=== PATIENT | male | born 1950 | race Caucasian/White ===

== ENCOUNTER 2017-10-31 07:56 | Outpatient (CLI) | payer MEDICARE ==
[2017-10-31 08:37] LABS: BASOPHILS # (AUTO) 0.1 10^3/uL (0.0-0.1); EOSINOPHILS # (AUTO) 0.1 10^3/uL (0.0-0.7); EOSINOPHILS % (AUTO) 2.2 %; HCT - HEMATOCRIT 43.7 % (42.0-52.0); HGB - HEMOGLOBIN 14.8 g/dL (14.0-18.0); LYMPHOCYTES # (AUTO) 1.3 10^3/uL (1.5-3.5); LYMPHOCYTES % (AUTO) 23.4 %; MEAN CORPUSCULAR HEMOGLOBIN 30.7 pg (27.0-31.0); MEAN CORPUSCULAR HGB CONC 33.8 g/dL (32.0-36.0); MEAN CORPUSCULAR VOLUME 90.7 fL (80.0-94.0); MONOCYTES # (AUTO) 0.5 10^3/uL (0.0-1.0); MONOCYTES % (AUTO) 9.6 %; NEUTROPHILS # (AUTO) 3.5 10^3/uL (1.5-6.6); NEUTROPHILS % (AUTO) 63.8 %; RED BLOOD COUNT 4.81 10^6/uL (4.70-6.10); RED CELL DISTRIBUTION WIDTH 13.7 % (12.0-15.0); UNCORRECTED WHITE BLOOD COUNT 5.4 x10^3/uL; WHITE BLOOD COUNT 5.4 x10^3/uL (4.8-10.8)
[2017-10-31 09:08] LABS: ALBUMIN/GLOBULIN RATIO 1.2 (1.0-2.2); BILIRUBIN,TOTAL 0.7 mg/dL (0.2-1.0); BUN - BLOOD UREA NITROGEN 11 mg/dL (6-20); CALCIUM 9.3 mg/dL (8.5-10.3); CARBON DIOXIDE - CO2 26 mmol/L (21-32); CHLORIDE 99 mmol/L (101-111); CHOL/HDL RATIO 4.6 (<5.0); CHOLESTEROL 255 mg/dL; CREATININE 0.9 mg/dL (0.6-1.2); GFR - MDRD 84 (>89); GLUCOSE 114 mg/dL (70-100); HDL CHOLESTEROL 55 mg/dL; POTASSIUM 4.6 mmol/L (3.5-5.0); SODIUM 135 mmol/L (135-145); TOTAL PROTEIN 7.8 g/dL (6.7-8.2); TRIGLYCERIDES 171 mg/dL; VLDL CHOLESTEROL 34 mg/dL
== END 2017-10-31 07:57 | disposition home or self-care (01) ==
LOC: LAB 07:56
PROVIDERS: ATTEND Internal Medicine
DX: Z12.5 Encounter for screening for malignant neoplasm of prostate (principal); R11.0 Nausea; R51 Headache; K90.0 Celiac disease; E03.9 Hypothyroidism, unspecified
CPT/HCPCS: 36415; 80053; 80061; 84443; 85025; 86803; G0103; 84153

== ENCOUNTER 2018-07-05 18:19 | Outpatient (CLI) | payer MEDICARE | END 2018-07-05 18:20 | disposition critical access hospital (66) | LOC: EMS 18:19 | PROVIDERS: ATTEND Surgery | DX: R55 Syncope and collapse (principal) | CPT/HCPCS: A0425; A0427 ==

== ENCOUNTER 2018-07-05 18:36 | Emergency (ER) | payer MEDICARE ==
[2018-07-05 19:05] LABS: BASOPHILS % (AUTO) 0.5 %; EOSINOPHILS % (AUTO) 3.1 %; LYMPHOCYTES # (AUTO) 1.3 10^3/uL (1.5-3.5); LYMPHOCYTES % (AUTO) 26.4 %; MEAN CORPUSCULAR HEMOGLOBIN 31.3 pg (27.0-31.0); MEAN CORPUSCULAR HGB CONC 34.5 g/dL (32.0-36.0); MEAN CORPUSCULAR VOLUME 90.6 fL (80.0-94.0); MEAN PLATELET VOLUME 6.4 fL (7.4-11.4); PLT - PLATELET COUNT 266 10^3/uL (130-450); RED BLOOD COUNT 4.16 10^6/uL (4.70-6.10); RED CELL DISTRIBUTION WIDTH 13.7 % (12.0-15.0); WHITE BLOOD COUNT 4.9 x10^3/uL (4.8-10.8)
[2018-07-05 19:06] LABS: EOSINOPHILS # (AUTO) 0.2 10^3/uL (0.0-0.7); MONOCYTES # (AUTO) 0.4 10^3/uL (0.0-1.0)
[2018-07-05 19:11] LABS: PT - PROTHROMBIN TIME 11.4 secs (9.9-12.6)
[2018-07-05 19:17] LABS: ALBUMIN 3.5 g/dL (3.2-5.5); ALBUMIN/GLOBULIN RATIO 1.1 (1.0-2.2); BILIRUBIN,TOTAL 0.7 mg/dL (0.2-1.0); CALCIUM 8.8 mg/dL (8.5-10.3); CREATININE 0.8 mg/dL (0.6-1.2); TOTAL PROTEIN 6.7 g/dL (6.7-8.2)
--- NOTE | 2018-07-05 20:09 | ED Physician Documentation ---
PD HPI SYNCOPE - Stated complaint Stated Complaint: SYNCOPE - Chief complaint Chief Complaint: Neuro - History obtained from History obtained from: Patient, Family - History of Present Illness Witnessed: Witnessed (He been feeling a little poorly all day, nauseous and dizzy. He was taking his blood pressure several times and noting some high readings but they got better after relaxing. He got up to get a glass of water and had a syncopal episode. He was dizzy before that but there was no chest pain or trouble breathing. He was unconscious for a short period of time and then quickly recovered. There was no injury. He feels better now but was noted to be orthostatic for EMS.) Review of Systems Constitutional: denies: Fever, Chills Cardiac: denies: Chest pain / pressure, Palpitations Respiratory: denies: Dyspnea, Cough GI: reports: Nausea, Constipation. denies: Abdominal Pain, Vomiting, Diarrhea PD PAST MEDICAL HISTORY - Past Medical History Past Medical History: Yes Cardiovascular: None Respiratory: None Neuro: None Endocrine/Autoimmune: HyPOthyroidism GI: Other : None HEENT: None Musculoskeletal: None Other Past Medical History: Celiac disease. - Past Surgical History Past Surgical History: No - Present Medications Home Medications: Ambulatory Orders Medication Instructions Recorded Confirmed Levothyroxine Sodium [Synthroid] 07/05/18 - Allergies Allergies/Adverse Reactions: Allergies Allergy/AdvReac Type Severity Reaction Status Date / Time Penicillins Allergy Hives Verified 07/05/18 18:47 tetanus and diphtheria Allergy Hives Verified 07/05/18 18:47 toxoids - Social History Does the pt smoke?: No Smoking Status: Never smoker Does the pt drink ETOH?: Yes Does the pt have substance abuse?: No Substance Use and Type: Marijuana - Immunizations Immunizations are current?: Yes PD ED PE NORMAL - Vitals Vital signs reviewed: Yes - General General: Alert and oriented X 3, No acute distress - HEENT HEENT: PERRL, EOMI - Neck Neck: Supple, no meningeal sign, No bony TTP - Cardiac Cardiac: RRR, No murmur - Respiratory Respiratory: No respiratory distress, Clear bilaterally - Abdomen Abdomen: Normal bowel sounds, Soft, Non tender - Back Back: No CVA TTP, No spinal TTP - Derm Derm: Normal color, Warm and dry - Extremities Extremities: No edema, No calf tenderness / cord - Neuro Neuro: Alert and oriented X 3, Normal speech Results - Vitals Vitals: Vital Signs - 24 hr 07/05/18 07/05/18 18:39 20:52 Temperature 36.0 C L Heart Rate 63 Heart Rate [ 64 Sitting] Heart Rate [ 69 Standing] Heart Rate [ 58 L Supine] Respiratory 16 Rate Blood Pressure 123/82 H Blood Pressure 142/78 H [Sitting] Blood Pressure 138/88 H [Standing] Blood Pressure 123/81 H [Supine] O2 Saturation 97 Oxygen O2 Source Room air - EKG (time done) 1921 Rate: Rate (enter#) (55) Rhythm: NSR [place]: Normal Intervals: Normal SD QRS: Normal Ischemia: Normal ST segments Computer interpretation: Agree with computer - Labs Labs: Laboratory Tests 07/05/18 07/05/18 07/05/18 19:00 19:00 19:00 WBC 4.9 RBC 4.16 L Hgb 13.0 L Hct 37.7 L MCV 90.6 MCH 31.3 H MCHC 34.5 RDW 13.7 Plt Count 266 MPV 6.4 L Neut # (Auto) 3.0 Lymph # (Auto) 1.3 L Wharton # (Auto) 0.4 Eos # (Auto) 0.2 Baso # (Auto) 0.0 Absolute Nucleated RBC 0.00 Nucleated RBC % 0.0 PT 11.4 INR 1.0 Sodium 135 Potassium 3.4 L Chloride 105 Carbon Dioxide 22 Anion Gap 8.0 BUN 11 Creatinine 0.8 Estimated GFR (MDRD) 96 Glucose 106 H Calcium 8.8 Total Bilirubin 0.7 AST 29 ALT 21 Alkaline Phosphatase 37 L Troponin I Total Protein 6.7 Albumin 3.5 Globulin 3.2 Albumin/Globulin Ratio 1.1 Lipase 41 07/05/18 19:00 WBC RBC Hgb Hct MCV MCH MCHC RDW Plt Count MPV Neut # (Auto) Lymph # (Auto) Wharton # (Auto) Eos # (Auto) Baso # (Auto) Absolute Nucleated RBC Nucleated RBC % PT INR Sodium Potassium Chloride Carbon Dioxide Anion Gap BUN Creatinine Estimated GFR (MDRD) Glucose Calcium Total Bilirubin AST ALT Alkaline Phosphatase Troponin I < 0.04 Total Protein Albumin Globulin Albumin/Globulin Ratio Lipase PD MEDICAL DECISION MAKING - ED course ED course: He was feeling off all day and was not drinking water. Then got dizzy and syncopized. It was positional, and the orthostatics prehospital suggest it was probably a volume issue. After the administration of 1 L normal saline here he was feeling much better and the orthostatics were repeated and normal. - Sepsis Event Vital Signs: Vital Signs - 24 hr 07/05/18 07/05/18 18:39 20:52 Temperature 36.0 C L Heart Rate 63 Heart Rate [ 64 Sitting] Heart Rate [ 69 Standing] Heart Rate [ 58 L Supine] Respiratory 16 Rate Blood Pressure 123/82 H Blood Pressure 142/78 H [Sitting] Blood Pressure 138/88 H [Standing] Blood Pressure 123/81 H [Supine] O2 Saturation 97 Oxygen O2 Source Room air Departure - Departure Disposition: Home, Self Care Clinical Impression: Dehydration Syncope Qualifiers: Syncope type: unspecified Qualified Code(s): R55 - Syncope and collapse Condition: Good Record reviewed to determine appropriate education?: Yes Instructions: ED Dehydration, ED Dizziness Syncope Fainting W Pre Comments: Call your doctor to arrange a follow-up appointment, make the next available appointment. In the interim, return anytime if worse or if new symptoms develop.
[2018-07-05 20:54] VITALS: BP 142/78
[2018-07-05] MEDS ORDERED: SODIUM CHLORIDE 0.9% 1,000 ML IV ONE (22:01)
== END 2018-07-05 21:05 | disposition home or self-care (01) ==
LOC: EDUNIT# → ED 18:36 → SUPCPDRO 18:36 → ED 21:05
DX: E86.0 Dehydration (principal); R55 Syncope and collapse; E03.9 Hypothyroidism, unspecified
CPT/HCPCS: 36415; 80053; 83690; 84484; 85025; 85610; 93005; 96360; 99283; 99284

== ENCOUNTER 2022-02-19 13:40 | Outpatient (CLI) | payer MEDICARE | END 2022-02-19 13:41 | disposition EMS.NT | LOC: EMS 13:40 | DX: H53.8 Other visual disturbances (principal) ==

== ENCOUNTER 2023-09-24 09:41 | Outpatient (CLI) | payer MEDICARE ==
[2023-09-24 09:58] LABS: BASOPHILS % (AUTO) 0.3 %; HCT - HEMATOCRIT 20.9 % (42.0-52.0); HGB - HEMOGLOBIN 7.1 g/dL (14.0-18.0); LYMPHOCYTES # (AUTO) 0.9 10^3/uL (1.5-3.5); LYMPHOCYTES % (AUTO) 9.9 %; MEAN CORPUSCULAR VOLUME 85.3 fL (80.0-94.0); MEAN PLATELET VOLUME 8.5 fL (7.4-11.4); MONOCYTES # (AUTO) 0.6 10^3/uL (0.0-1.0); MONOCYTES % (AUTO) 7.1 %; NEUTROPHILS # (AUTO) 7.4 10^3/uL (1.5-6.6); NEUTROPHILS % (AUTO) 82.3 %; PLT - PLATELET COUNT 380 10^3/uL (130-450); RED BLOOD COUNT 2.45 10^6/uL (4.70-6.10); RED CELL DISTRIBUTION WIDTH 15.1 % (12.0-15.0)
[2023-09-24 10:30] LABS: ALBUMIN 4.1 g/dL (3.2-5.5); ALBUMIN/GLOBULIN RATIO 1.7 (1.0-2.2); BILIRUBIN,TOTAL 0.6 mg/dL (0.2-1.0); CALCIUM 8.9 mg/dL (8.5-10.3); CREATININE 0.9 mg/dL (0.6-1.3); POTASSIUM 3.4 mmol/L (3.5-4.5); TOTAL PROTEIN 6.5 g/dL (6.4-8.9)
== END 2023-09-24 09:42 | disposition home or self-care (01) ==
LOC: LAB 09:41
PROVIDERS: ATTEND Registered Nurse
DX: R19.7 Diarrhea, unspecified (principal); I95.1 Orthostatic hypotension; E86.0 Dehydration; R11.2 Nausea with vomiting, unspecified
CPT/HCPCS: 36415; 80053; 85025; 87045; 87046; 87427; 87493

== ENCOUNTER 2023-09-25 04:43 | Inpatient (IN) | payer MEDICARE ==
[2023-09-25] MEDS ORDERED: PANTOPRAZOLE 40 MG VIAL IVP STA (05:16)
--- NOTE | 2023-09-25 05:27 | ED Physician Documentation ---
History of Present Illness - Stated complaint Stated Complaint: ALOC, BLOOD IN STOOL - Chief complaint Chief Complaint: General - History obtained from History obtained from: Patient, Family, EMS - Additonal information Additional information: HPI is from EMS, patient, as well as patient's spouse. Patient's spouse is in the ED in an adjacent bed, as she is also presenting for unrelated symptoms as an ED patient. Patient's says that at approximately 4 AM this morning she noticed the patient was not in bed, which is highly unusual for him at this hour. She eventually found him outside on the porch. She says that he seemed disoriented when she found him. The patient tells me that he was feeling "claustrophobic" at approximately 3 AM and thus went outside to sit on the porch "to get some fresh air" (per patient). He says he felt better sitting outside, but, upon standing up out of the lawn chair on the porch, he had lightheadedness and generalized weakness and thus went to ground (denies falling, denies any injury; he describes slowly helping himself to the floor). Patient says he recalls entire event. He is oriented x3 on my HPI, but has difficulty with some answers to my questions and, per patient, he says he is feeling somewhat confused. Patient also complains of 3 days of dark, tarry stool. For this, he was seen in an outpatient clinic yesterday. He says that a test was done and stool that confirmed presence of blood in the stool. He had blood tests performed yesterday in the outpatient setting, does have not know results yet. Patient also says that when he was in the clinic, his systolic blood pressure was 120, but that it dropped "about 40 points" (per patient) when they checked his blood pressure when he stood up. The patient and patient's note that he took a dose of ibuprofen several days ago, then took Motrin (not realizing this is the same medication). Patient cannot recall details of previous GI bleed, but says that he has had gastrointestinal bleeding the past, possibly due to PUD. Patient does not take any blood thinning medications. Review of Systems Constitutional: reports: Fatigue. denies: Fever Eyes: denies: Loss of vision, Decreased vision Cardiac: reports: Reviewed and negative Respiratory: reports: Reviewed and negative GI: reports: Nausea, Vomiting, Bloody / black stool. denies: Abdominal Pain, Constipation, Diarrhea, Hematemesis : reports: Hematuria. denies: Dysuria, Frequency Skin: reports: Reviewed and negative Musculoskeletal: reports: Reviewed and negative Neurologic: reports: Generalized weakness, Near syncope, Confused (per patient although AAOx3 on my HPI/PE). denies: Focal weakness, Numbness, Unresponsive, Headache, Head injury, LOC PD PAST MEDICAL HISTORY - Past Medical History Cardiovascular: None Respiratory: None Neuro: None Endocrine/Autoimmune: HyPOthyroidism GI: Other : None HEENT: None Musculoskeletal: None - Past Surgical History Past Surgical History: No - Present Medications Home Medications: Ambulatory Orders Medication Instructions Recorded Confirmed Atorvastatin [Lipitor] 20 mg PO QPM 09/25/23 Levothyroxine [Synthroid] 88 mcg PO QDAC 09/25/23 Losartan Potassium 25 mg PO DAILY 09/25/23 Ondansetron HCl 4 mg PO BID PRN 09/25/23 - Allergies Allergies/Adverse Reactions: Allergies Allergy/AdvReac Type Severity Reaction Status Date / Time Penicillins Allergy Hives Verified 07/05/18 18:47 tetanus and diphtheria Allergy Hives Verified 07/05/18 18:47 toxoids - Social History Does the pt smoke?: No Smoking Status: Never smoker Does the pt drink ETOH?: Yes Does the pt have substance abuse?: No - Immunizations Immunizations are current?: Yes PD ED PE NORMAL - Vitals Vital signs reviewed: Yes - General General: Alert and oriented X 3, No acute distress, Other (pale, thin male in NAD) - HEENT HEENT: Atraumatic, Moist mucous membranes - Cardiac Cardiac: RRR, No murmur, No gallop, No rub - Respiratory Respiratory: No respiratory distress, Clear bilaterally - Abdomen Abdomen: Soft, Non tender, Non distended - Extremities Extremities: No edema - Neuro Neuro: Alert and oriented X 3, computer application developer 2-12 intact, No motor deficit, No sensory deficit, Normal speech Eye Opening: Spontaneous Motor: Obeys Commands Verbal: Oriented GCS Score: 15 PD ED PE EXPANDED - Rectal Rectal: Other (dark black stool ). No: Hemorrhoid - Derm Derm: Pale Results - Vitals Vitals: Vital Signs - 24 hr 09/25/23 09/25/23 09/25/23 04:53 06:42 08:01 Temperature 37 C 36.7 C Heart Rate 72 100 58 L Respiratory 20 20 16 Rate Blood Pressure 134/64 H 134/82 H 120/57 L O2 Saturation 100 100 100 If not protocol 2 2 : Oxygen Flow, liters/minute Oxygen O2 Source Nasal cannula - Labs Labs: Laboratory Tests 09/25/23 09/25/23 09/25/23 04:50 04:50 04:53 WBC 6.6 RBC 2.09 L Hgb 6.0 L* Hct 18.5 L* MCV 88.5 MCH 28.7 MCHC 32.4 RDW 15.3 H Plt Count 373 MPV 8.8 Neut # (Auto) 5.2 Lymph # (Auto) 0.8 L Lipscomb # (Auto) 0.6 Eos # (Auto) 0.0 Baso # (Auto) 0.0 Absolute Nucleated RBC 0.00 Nucleated RBC % 0.0 PT INR Sodium Potassium Chloride Carbon Dioxide Anion Gap BUN Creatinine Estimated GFR (MDRD) Glucose Calcium Total Bilirubin AST ALT Alkaline Phosphatase Troponin I High Sens 10.3 Total Protein Albumin Globulin Albumin/Globulin Ratio Lipase TSH 8.31 H Blood Type Blood Type Recheck Antibody Screen Crossmatch IS Only 09/25/23 09/25/23 09/25/23 04:53 04:53 04:53 WBC RBC Hgb Hct MCV MCH MCHC RDW Plt Count MPV Neut # (Auto) Lymph # (Auto) Lipscomb # (Auto) Eos # (Auto) Baso # (Auto) Absolute Nucleated RBC Nucleated RBC % PT 13.5 H INR 1.3 H Sodium 128 L Potassium 3.1 L Chloride 98 L Carbon Dioxide 23 Anion Gap 7.0 BUN 10 Creatinine 0.6 Estimated GFR (MDRD) 131 Glucose 157 H Calcium 8.1 L Total Bilirubin 0.5 AST 22 ALT 13 Alkaline Phosphatase 27 L Troponin I High Sens Total Protein 5.9 L Albumin 3.8 Globulin 2.1 Albumin/Globulin Ratio 1.8 Lipase 22 TSH Blood Type Blood Type Recheck O POSITIVE Antibody Screen Crossmatch IS Only 09/25/23 05:46 WBC RBC Hgb Hct MCV MCH MCHC RDW Plt Count MPV Neut # (Auto) Lymph # (Auto) Lipscomb # (Auto) Eos # (Auto) Baso # (Auto) Absolute Nucleated RBC Nucleated RBC % PT INR Sodium Potassium Chloride Carbon Dioxide Anion Gap BUN Creatinine Estimated GFR (MDRD) Glucose Calcium Total Bilirubin AST ALT Alkaline Phosphatase Troponin I High Sens Total Protein Albumin Globulin Albumin/Globulin Ratio Lipase TSH Blood Type O POSITIVE Blood Type Recheck Antibody Screen NEGATIVE Crossmatch IS Only See Detail - Rads (name of study) CTH Relevant Findings:: Prelim report reviewed, See rad report chest xray Relevant Findings:: Prelim report reviewed, See rad report PD Medical Decision Making - ED course Complexity details: reviewed results, re-evaluated patient, considered differential, d/w patient ED course: Patient's outpatient blood work that was performed yesterday (09/25) shows hemoglobin of 7.1. The most recent, previous hemoglobin on [employer] was 13 on 07/05/2018. On [employer] tests, his hemoglobin is now 6.0. Despite the significant drop in less than 24 hours, his vital signs remained stable during his ER observation. Additionally, he had no evidence of active bleeding (did not have hematemesis, did not pass any blood/black stool during ED stay, although black stool is noted on rectal exam). I discussed the results with patient. I also discussed with him the need for transfusion of packed red blood cells. I reviewed the consent form, including the risks and benefits of the transfusion, with the patient, and he subsequently signed the document. He signed this after verbalizing clear consent for the transfusion. Included in his ED work-up is chest x-ray, EKG, troponin (these were undertaken as part of a near-syncope work-up), as well as CT head (as part of an altered mental status work-up). There were no concerning or diagnostic findings on the studies. I discussed this case with Dr. Urbina (on-call surgery for [facility]); he agrees patient is appropriate for admission to [facility], hospitalist service with surgical consult. I then spoke to Dr. Mckenzie (hospitalist for [facility]) who accepts patient for admission to [facility] hospitalist service. Departure - Departure Disposition: 66 [facility] DC/Xfer Clinical Impression: Near syncope, Upper gastrointestinal bleeding Anemia Qualifiers: Anemia type: unspecified type Qualified Code(s): D64.9 - Anemia, unspecified Condition: Stable
[2023-09-25 05:31] LABS: BASOPHILS % (AUTO) 0.3 %; EOSINOPHILS % (AUTO) 0.3 %; LYMPHOCYTES # (AUTO) 0.8 10^3/uL (1.5-3.5); LYMPHOCYTES % (AUTO) 12.5 %; MEAN CORPUSCULAR HEMOGLOBIN 28.7 pg (27.0-31.0); MEAN CORPUSCULAR HGB CONC 32.4 g/dL (32.0-36.0); MEAN CORPUSCULAR VOLUME 88.5 fL (80.0-94.0); MEAN PLATELET VOLUME 8.8 fL (7.4-11.4); MONOCYTES # (AUTO) 0.6 10^3/uL (0.0-1.0); MONOCYTES % (AUTO) 8.6 %; NEUTROPHILS # (AUTO) 5.2 10^3/uL (1.5-6.6); NEUTROPHILS % (AUTO) 77.8 %; PLT - PLATELET COUNT 373 10^3/uL (130-450); RED BLOOD COUNT 2.09 10^6/uL (4.70-6.10); RED CELL DISTRIBUTION WIDTH 15.3 % (12.0-15.0); WHITE BLOOD COUNT 6.6 x10^3/uL (4.8-10.8)
[2023-09-25 05:34] LABS: INR 1.3 (0.8-1.2); PT - PROTHROMBIN TIME 13.5 secs (9.9-12.6)
[2023-09-25] MEDS ORDERED: ONDANSETRON 4 MG/2 ML VIAL IVP STA (05:36)
[2023-09-25 05:51] LABS: ALBUMIN 3.8 g/dL (3.2-5.5); ALBUMIN/GLOBULIN RATIO 1.8 (1.0-2.2); BILIRUBIN,TOTAL 0.5 mg/dL (0.2-1.0); CALCIUM 8.1 mg/dL (8.5-10.3); CREATININE 0.6 mg/dL (0.6-1.3); POTASSIUM 3.1 mmol/L (3.5-4.5); TOTAL PROTEIN 5.9 g/dL (6.4-8.9)
[2023-09-25 06:10] LABS: HCT - HEMATOCRIT 18.5 % (42.0-52.0)
[2023-09-25] MEDS ORDERED: ONDANSETRON ODT 4 MG TABLET TL PRN (08:16)
[2023-09-25] MEDS ORDERED: SODIUM CHLORIDE FLUSH 0.9% 10 ML SYRINGE IVP PRN (08:16)
[2023-09-25] MEDS ORDERED: ACETAMINOPHEN 325 MG TABLET PO PRN (08:16)
[2023-09-25] MEDS ORDERED: oxyCODONE 5 MG TABLET PO PRN (08:16)
[2023-09-25] MEDS ORDERED: PROCHLORPERAZINE 10 MG/2 ML VIAL IVP PRN (08:16)
--- NOTE | 2023-09-25 08:21 | HISTORY & PHYSICAL EXAMINATION ---
Chief Complaint - Chief Complaint Chief Complaint: lightheaded, "passing out", Generalized weakness History of Present Illness - Admitted From Admitted From:: Home/ED - History Obtained From Records Reviewed: Yes History obtained from: patient and ED sign out - History of Present Illness HPI Comment/Other: A 73 years old male with history of hypertension, hyperlipidemia, hypothyroidism, celiac disease, peptic ulcer disease, chronic anemia, alcohol drinker small amount each day, last drink was the day before presentation. He was was brought in to the ED by EMS after his found him on the porch passed out at night. Per patient, he went out to the porch at night around 3 AM after drinking some water, try to get some fresh air, he felt lightheaded, and very weak, he helped himself slowly down to the floor, denies lost consciousness and fall. His found him and called EMS. Patient reports 3 days of dark tarry stool, he was seen in an outpatient clinic the day before presentation, he was told that his stool was positive with blood. He also has complaints of urinary urgency, however cannot produce any urine. Per patient patient took ibuprofen a few days ago along with Motrin. Patient reports about 20 pounds of weight loss in the past 2 weeks. Patient reports nausea vomiting, and diarrhea. Denies abdominal pain. Denies dysuria, denies previous prostate condition In the ED patient vitals were within normal limits. Labs significant with hemoglobin 6.0 sodium 128, potassium 3.1, glucose 157. Patient was given Pr otonix IV once, 2 units of PRBC was ordered in the ED. Surgical Dr. Noel was consulted, recommend n.p.o. after midnight plans for EGD tomorrow a.m. History - Past Medical History Cardiovascular: reports: None, Hypertension, High cholesterol Respiratory: reports: None Neuro: reports: None Endocrine/Autoimmune: reports: HyPOthyroidism GI: reports: Ulcers, Other (Celiac disease) : reports: None HEENT: reports: None Musculoskeletal: reports: None Meds/Allgy - Home Medications Home Medications: Ambulatory Orders Medication Instructions Recorded Confirmed Atorvastatin [Lipitor] 20 mg PO QPM 09/25/23 Levothyroxine [Synthroid] 88 mcg PO QDAC 09/25/23 Losartan Potassium 25 mg PO DAILY 09/25/23 Ondansetron HCl 4 mg PO BID PRN 09/25/23 - Allergies Allergies/Adverse Reactions: Allergies Allergy/AdvReac Type Severity Reaction Status Date / Time Penicillins Allergy Hives Verified 07/05/18 18:47 tetanus and diphtheria Allergy Hives Verified 07/05/18 18:47 toxoids Review of Systems - Constitutional Constitutional: reports: Fatigue. denies: Fever, Chills - Eyes Eyes: denies: Blurred vision, Vision loss - Ears, Nose & Throat Ears, Nose & Throat: denies: Sore throat, Hoarseness - Cardiovascular Cariovascular: denies: Palpitations, Chest pain - Respiratory Respiratory: denies: Cough, Wheezing, Hemoptysis, SOB at rest - Gastrointestinal Gastrointestinal: reports: Diarrhea, Black stools, Nausea, Vomiting. denies: Abdominal pain - Genitourinary Genitourinary: reports: Urgency. denies: Dysuria, Hematuria, Incontinence, Flank pain - Musculoskeletal Musculoskeletal: reports: Muscle weakness. denies: Muscle pain, Back pain - Neurological Neurological: reports: General weakness. denies: Focal weakness, Numbness - Endocrine Endocrine: denies: Polyuria, Polydypsia, Polyphagia - Hematologic/Lymphatic Hematologic/Lymphatic: reports: Anemia. denies: Bruising, Petechiae Prior Level of Functionality: Independent ADLs, Primary caregiver for his , who has Parkinson disease Exam - Vital Signs Reviewed Vital Signs: Yes Vital Signs: Vital Signs x48h Temp Pulse Resp BP Pulse Ox O2 Flow Rate 09/25/23 08:01 58 L 16 120/57 L 100 2 09/25/23 06:42 36.7 C 100 20 134/82 H 100 2 09/25/23 04:53 37 C 72 20 134/64 H 100 - Physical Exam General Appearance: positive: No acute distress, Alert Eyes Bilateral: positive: PERRL, EOMI ENT: positive: ENT inspection nml Neck: positive: Nml inspection, No JVD Cardiovascular: positive: Regular rate & rhythm, No murmur, No gallop Peripheral Pulses: positive: 2+ Abdomen: positive: Non-tender, Nml bowel sounds, No distention. negative: G uarding Skin: positive: Color nml, No rash, Warm, Dry Extremities: positive: Non-tender, Full ROM, No pedal edema Neurologic/Psychiatric: positive: Oriented x3, CN's nml (2-12) Sepsis Event Note (H) - Evaluation Current Stage of Sepsis: Ruled out Conclusion/Plan - Problem List (1) Anemia Conclusion/Plan: Severe, hemoglobin 6.0 Likely due to peptic ulcer disease, upper GI bleed Give 2 units of PRBC, follow-up H&H Protonix IV drip Surgeon plans to do EGD tomorrow a.m. Clear liquid diet now, n.p.o. after midnight IV fluid will be given during n.p.o. Qualifiers: Anemia type: unspecified type Qualified Code(s): D64.9 - Anemia, unspecified (2) Near syncope Conclusion/Plan: Secondary to anemia, dehydration CT head normal, no further syncope work-up is indicated at this point (3) Hyponatremia Conclusion/Plan: Sodium 128, Likely chronic likely related to alcohol use, And Diarrhea And Pure water intake Free water restriction, 100 cc free water at most per day Recheck sodium level in p.m. (4) Hypokalemia Conclusion/Plan: Potassium 3.1, likely related to diarrhea, GI loss Gave KCl IV 10 mEq for 4 doses Recheck in afternoon (5) Hypothyroidism Conclusion/Plan: On Synthroid treatment, however TSH 8 Check free T4, pending report May need to readjust things thyroid dose (6) Celiac disease Conclusion/Plan: Gluten-free diet - Lab Results Fish Bones: 09/25/23 04:53 09/25/23 04:53
--- NOTE | 2023-09-25 08:23 | CONSULTATION NOTE ---
Surgery Consult - Admit Date Hospital Admission Date: 09/25/23 - Consult Date Consult Date: 09/25/23 Requesting Provider: Dr. Mckenzie - Chief Complaint Chief Complaint: Black stools - Home Meds/Allergies Home Medications: Patient History Medication Instructions Recorded Confirmed Atorvastatin [Lipitor] 20 mg PO QPM 09/25/23 Levothyroxine [Synthroid] 88 mcg PO QDAC 09/25/23 Losartan Potassium 25 mg PO DAILY 09/25/23 Ondansetron HCl 4 mg PO BID PRN 09/25/23 Allergies/Adverse Reactions: Allergies Allergy/AdvReac Type Severity Reaction Status Date / Time Penicillins Allergy Hives Verified 07/05/18 18:47 tetanus and diphtheria Allergy Hives Verified 07/05/18 18:47 toxoids - Vital Signs Vital Signs: Last Vital Signs Temp 98.1 F 09/25/23 06:42 Pulse 58 L 09/25/23 08:01 Resp 16 09/25/23 08:01 BP 120/57 L 09/25/23 08:01 Pulse Ox 100 09/25/23 08:01 O2 Flow Rate 2 09/25/23 08:01 - Lab Results Result Diagrams: 09/25/23 04:53 09/25/23 04:53 - Consultation Note Consultation Note: General Surgery Consultation Note Assessment: Acute 1) Anemia, melena - suspect acute on chronic UGI bleed aggravated by NSAID use 2) Hyponatremia 3) Hypokalemia Chronic 4) Hypothyroidism 5) Hyperlipidemia 6) Hypertension Recommendation: 1) Transfuse PRBC to a Hgb above 7-8 gm/dL 2) IV PPI 3) Ice chips/clear liquid diet until midnight, then NPO 4) EGD tomorrow. I will obtain consent later today after he has received PRBC replacement <><><><><><><><><><> Reason for Consultation Suspect UGI bleed causing melena Chief Complaint Disoriented, black stools ABRAN Elizondo is a 73 year old man who was found wandering outside on his deck early this morning by his . He felt disoriented and confused. His brought him to the ED and he admitted to using NSAID's for the last several days for generalized body aches. He also admitted to the presence of black, tarry stools for at least the last 3-4 days. Blood tests identified a Hgb of 6 gm/dL, hyponatriema, and hypokalemia. He was admitted to the Medical Hospitalist Service and General Surgery was asked to assist in his evaluation and management. Mikhail denies nausea, vomiting, abdominal pain, or hematemesis. He does not take a DOAC, Warfarin, Heparin, Plavix, Aspirin, or Lovenox. Past Medical History Hypothryoidism Past Surgical History None [place] as she has severe Parkinson's. Denies alcohol or cigarette use Current Medications Levothyroxine Allergies PCN ROS Pertinent positives Weakness, disorientation, melena All other reviewed systems negative Physical Examination Vital Signs: See "Vital Signs" section BMI: 19.5 GENERAL APPEARANCE: Normal development, normal body habitus, normal grooming PSYCHIATRIC: AAO; Comfortable EYES: Pupils equal, round and reactive to light, sclera anicteric EARS, NOSE, MOUTH, THROAT: Hearing normal, Oral mucous membranes moist and without lesions; NECK: No crepitus, lymphadenopathy, or thyromegaly LUNGS: Clear to auscultation without wheezing; No use of accessory muscles to breathe CARDIOVASCULAR: Heart-NSR without murmurs; Palpable carotid arteries - no bruits; Aorta, Femoral, Pedal pulses palpable; Peripheral edema [] ABD: Soft, non-distended, Non-tender, No VH LYMPHATIC: Neck, Axillae, Groin no palpable adenopathy EXTREMITIES: No clubbing, cyanosis, infections SKIN: Anicteric; No rashes, lesions, Ulcerations Labs See "Labs" section Imaging N/A Zain Noel MD, FACS General Surgery Service [phone]
--- NOTE | 2023-09-25 08:29 | XRAY Report ---
PROCEDURE: Chest 1 View X-Ray INDICATIONS: chest pain TECHNIQUE: One view of the chest was acquired. COMPARISON: None. FINDINGS: Surgical changes and devices: None. Lungs and pleura: No pleural effusions or pneumothorax. Lungs are clear. Mediastinum: Mediastinal contours appear normal. Heart size is normal. Bones and chest wall: No suspicious bony lesions. Overlying soft tissues appear unremarkable. IMPRESSION: No acute cardiopulmonary process. Reviewed by: Chace Koroma on 09/25/2023 8:27 AM PDT Approved by: Chace Koroma on 09/25/2023 8:27 AM PDT Station ID: [id number]
--- NOTE | 2023-09-25 08:31 | CT Report ---
PROCEDURE: HEAD WO INDICATIONS: AMS TECHNIQUE: Noncontrast 4.5 mm thick angled axial sections acquired from the foramen magnum to the vertex. For r adiation dose reduction, the following was used: automated exposure control, adjustment of mA and/or kV according to patient size. COMPARISON: None. FINDINGS: Image quality: Excellent. CSF spaces: Basal cisterns are patent. No extra-axial fluid collections. Ventricles are normal in size and shape. Brain: No midline shift. No intracranial masses or hemorrhage. Focus of deep white matter hypoatten uation of the left superior frontal cortex. Leukoaraiosis, commonly caused by chronic small vessel is chemic disease. Age-related volume loss. Skull and face: Calvarium and visualized facial bones are intact, without suspicious lesions. Sinuses: Visualized sinuses and mastoids are clear. IMPRESSION: Focus of deep white matter hypoattenuation of the left superior frontal cortex. Findings may indicate late acute or subacute infarct. Consider correlation with MRI. Reviewed by: hCace Koroma on 09/25/2023 8:30 AM PDT Approved by: Chace Koroma on 09/25/2023 8:30 AM PDT Station ID: [id number]
[2023-09-25] MEDS: SODIUM CHLORIDE FLUSH 0.9% 10 ML SYRINGE IVP SCH ×2 (10:25→20:31)
--- NOTE | 2023-09-25 10:45 | PROVIDER PROGRESS NOTE ---
Progress Note General Surgery Consent Note Mikhail has anemia thought due to an acute on chronic UGI bleeding source. He has a history of a pre-pyloric ulcer and has been using NSAID's recently. He has been started on PRBC and remains hemodynamically stable. The plan is to gently transfuse him today and perform EGD tomorrow. Mikhail has been counseled for the procedure, it's indications, risks, benefits and expected outcome. We specifically discussed risks associated with anesthesia, bleeding, infection, and injury to surrounding structures which may require additional surgery. Mikhail requests that we proceed with the procedure as outlined in our discussion. Zain Noel MD General Surgery Service
[2023-09-25] MEDS: POTASSIUM CHLOR 10 MEQ/100 ML 10 MEQ/100 ML BAG IV SCH ×4 (13:12→17:14)
[2023-09-25] MEDS: PANTOPRAZOLE 80 MG in SODIUM CHLORIDE 0.9% 100ML 100 ML IV SCH ×2 (13:12→22:29)
[2023-09-25 13:29] LABS: BILIRUBIN,URINE NEGATIVE (NEGATIVE); GLUCOSE, URINE (UA) NEGATIVE (NEGATIVE); KETONES,URINE (UA) 15 mg/dL (NEGATIVE); LEUKOCYTE ESTERASE, URINE NEGATIVE (NEGATIVE); NITRITE,URINE NEGATIVE (NEGATIVE); OCCULT BLOOD,URINE NEGATIVE (NEGATIVE); PROTEIN,URINE NEGATIVE (NEGATIVE); UROBILINOGEN,URINE 0.2 (NORMAL) E.U./dL (NORMAL)
[2023-09-25 13:31] LABS: CLARITY,URINE CLEAR (CLEAR)
[2023-09-25 18:08] LABS: ALBUMIN 3.5 g/dL (3.2-5.5); ALBUMIN/GLOBULIN RATIO 1.7 (1.0-2.2); BILIRUBIN,TOTAL 0.9 mg/dL (0.2-1.0); CALCIUM 8.1 mg/dL (8.5-10.3); CREATININE 0.6 mg/dL (0.6-1.3); POTASSIUM 3.7 mmol/L (3.5-4.5); TOTAL PROTEIN 5.6 g/dL (6.4-8.9)
[2023-09-25] MEDS: ATORVASTATIN 10 MG TABLET PO SCH (20:31)
[2023-09-25] MEDS ORDERED: SODIUM CHLORIDE 0.9% 1,000 ML IV SCH (22:00)
[2023-09-26 06:03] LABS: BASOPHILS % (AUTO) 0.4 %; EOSINOPHILS # (AUTO) 0.1 10^3/uL (0.0-0.7); HCT - HEMATOCRIT 27.5 % (42.0-52.0); HGB - HEMOGLOBIN 9.6 g/dL (14.0-18.0); LYMPHOCYTES # (AUTO) 1.1 10^3/uL (1.5-3.5); LYMPHOCYTES % (AUTO) 15.1 %; MEAN CORPUSCULAR HEMOGLOBIN 29.5 pg (27.0-31.0); MEAN CORPUSCULAR HGB CONC 34.9 g/dL (32.0-36.0); MEAN CORPUSCULAR VOLUME 84.6 fL (80.0-94.0); MEAN PLATELET VOLUME 8.8 fL (7.4-11.4); MONOCYTES # (AUTO) 0.5 10^3/uL (0.0-1.0); MONOCYTES % (AUTO) 7.3 %; NEUTROPHILS # (AUTO) 5.4 10^3/uL (1.5-6.6); NEUTROPHILS % (AUTO) 75.8 %; PLT - PLATELET COUNT 414 10^3/uL (130-450); RED BLOOD COUNT 3.25 10^6/uL (4.70-6.10); RED CELL DISTRIBUTION WIDTH 15.3 % (12.0-15.0); WHITE BLOOD COUNT 7.1 x10^3/uL (4.8-10.8)
[2023-09-26 06:12] LABS: CALCIUM 8.1 mg/dL (8.5-10.3); CREATININE 0.6 mg/dL (0.6-1.3); POTASSIUM 3.1 mmol/L (3.5-4.5)
[2023-09-26] MEDS: SODIUM CHLORIDE FLUSH 0.9% 10 ML SYRINGE IVP SCH ×3 (06:44→17:21)
[2023-09-26] MEDS ORDERED: LEVOTHYROXINE 88 MCG TABLET PO SCH (07:00)
--- NOTE | 2023-09-26 07:48 | PROVIDER PROGRESS NOTE ---
Assessment/Plan - Problem List (1) Anemia Qualifiers: Anemia type: unspecified type Qualified Code(s): D64.9 - Anemia, unspecified Assessment/Plan: Iron study shows iron level 20. After 2 PRBC given, hemoglobin improved to 9.6 appropriately EGD in the morning by surgical Dr. Noel, No source of bleeding noted. Recommend colonoscopy, which is planned for tomorrow Bowel prep today, n.p.o. after midnight (2) Near syncope Assessment/Plan: It appears that patient intentionally ingested 10 to 15 tablets of oxycodone for suicidal attempts Discussed with poison control at [phone], who recommended to check acetaminophen level, do drug screen. Since patient vitals are within normal limits, no altered mental status, no concerns about further work-up Recommend crisis team to be involved once patient is medically cleared for discharge to reevaluate his suicidal attempts. (3) Hyponatremia Assessment/Plan: Improving properly today sodium 134 Continue monitoring electrolytes. (4) Hypokalemia Assessment/Plan: Potassium 3.1, EKG for preop, appears stable, no U wave Improved to 3.5 after 40 mEq KCl given Give 10 mEq IV 4 times to ensure potassium in good level due to GI loss from bowel prep (5) Hypothyroidism Assessment/Plan: TSH 8, FT4 within normal low level Increase Synthroid dose from 88 to 100 mcg, recommend patient to follow-up TSH and T4 as outpatient (6) Celiac disease Assessment/Plan: Gluten-free diet if able to eat - Current Meds Current Meds: Current Medications Generic Name Dose Route Start Last Admin Trade Name Freq PRN Reason Stop Dose Admin Acetaminophen 650 mg 09/25/23 08:16 09/25/23 19:06 Acetaminophen 325 Mg Tablet PO 650 mg Q4HR PRN Administration Pain 1 to 4, or Fever Atorvastatin Calcium 10 mg 09/25/23 21:00 09/25/23 20:31 Atorvastatin 10 Mg Tablet PO 10 mg QPM RISHI Administration Pantoprazole Sodium 80 mg/ 100 mls @ 10 mls/hr 09/25/23 12:00 09/25/23 22:33 Sodium Chloride IV 10 mls/hr .Q10H RISHI Infusion Sodium Chloride 1,000 mls @ 83.333 mls/hr 09/25/23 22:00 09/25/23 22:33 Normal Saline 0.9% IV 09/26/23 09:59 83.333 mls/hr .Q12H RISHI Infusion Levothyroxine Sodium 88 mcg 09/26/23 07:00 09/26/23 06:44 Levothyroxine 88 Mcg Tablet PO 88 mcg QDAC RISHI Administration Ondansetron HCl 4 mg 09/25/23 08:16 09/25/23 16:37 Ondansetron Odt 4 Mg Tablet TL 4 mg Q6HR PRN Administration Nausea / Vomiting Sodium Chloride 10 ml 09/25/23 09:00 09/26/23 06:44 Sodium Chloride Flush 0.9% 10 Ml Syringe IVP 10 ml 0100,0900,1700 RISHI Administration - Lab Result Lab results reviewed: Yes Fish Bone Diagrams: 09/26/23 05:12 09/26/23 16:42 - EKG Results EKG Interpreted Independently: Yes EKG Findings: Sinus rhythm, no acute ischemic changes, no U wave - Additional Planning Condition/Complexity: Improved My Orders: My Active Orders 09/25/23 08:16 IO [RC] IOSHIFT Incentive Spirometry - RT [RC] TID Initiate Bowel Care Protocol [RC] .protocol Initiate Line Care Protocol [RC] [facility] Initiate Personal Care Protoco [RC] .protocol Oxygen Therapy [RC] .PRN Vital Signs [RC] 0800,1600,0000 Acetaminophen [Tylenol] 650 mg PO Q4HR PRN Ondansetron Odt [Zofran Odt] 4 mg TL Q6HR PRN Prochlorperazine Inj [Compazine Inj] 10 mg IVP Q6HR PRN Sodium Chloride Flush 0.9% [Normal Saline Flush 0.9%] 10 ml IVP PRN PRN oxyCODONE [Roxicodone] 5 mg PO Q4HR PRN Code Status [OTHERS] Routine Condition of Patient [OTHERS] Routine DVT Prophylaxis [OTHERS] Routine 09/25/23 08:19 SCDs [RC] QSHIFT General Surgery Consult [CONS] Routine 09/25/23 09:00 Sodium Chloride Flush 0.9% [Normal Saline Flush 0.9%] 10 ml IVP 0100,0900,1700 09/25/23 11:45 Bladder Scan [RC] ONCE 09/25/23 11:51 Free Water Restriction [RC] ONCE 09/25/23 12:00 Sodium Chloride 0.9% 100Ml [Normal Saline 0.9% 100Ml] 100 ml Pantoprazole [Protonix] 80 mg IV 10 mls/hr 09/25/23 16:32 Miscellaenous Nursing Order [RC] Q30M 09/25/23 21:00 Atorvastatin [Lipitor] 10 mg PO QPM 09/25/23 22:00 Sodium Chloride 0.9% [Normal Saline 0.9%] 1,000 ml IV 83.333 mls/hr 09/26/23 07:00 Levothyroxine [Synthroid] 88 mcg PO QDAC 09/26/23 07:41 NPO [DIET] 09/26/23 07:42 EKG - Electrocardiogram [RC] .ONCE 09/26/23 08:00 Potassium Chloride/Water 10 mEq/100 mL q1h (Enter # of bags) Potassium Chlor 10 Meq/100 ml [Potassium Chloride] 10 meq in 100 ml IV Q1H 09/26/23 09:00 Losartan [Cozaar] 50 mg PO DAILY 09/27/23 05:00 BMP - BASIC METABOLIC PANEL [CHEM] DAILYLAB CBC [CBC - COMP BLD CT W/AUTO DIFF] [HEME] DAILYLAB 09/28/23 05:00 BMP - BASIC METABOLIC PANEL [CHEM] DAILYLAB CBC [CBC - COMP BLD CT W/AUTO DIFF] [HEME] DAILYLAB 09/29/23 05:00 BMP - BASIC METABOLIC PANEL [CHEM] DAILYLAB CBC [CBC - COMP BLD CT W/AUTO DIFF] [HEME] DAILYLAB 09/30/23 05:00 BMP - BASIC METABOLIC PANEL [CHEM] DAILYLAB CBC [CBC - COMP BLD CT W/AUTO DIFF] [HEME] DAILYLAB Plan Discussed with:: Patient Time Spent: 15-30 minutes Subjective - Subjective Patient Reports: Feeling Better (He is concerned about when he can go home since his has Parkinson's, depends on his help They have family's come out of town try to arrange assisted living for them) Objective Vital Signs: Vital Signs - 24 hr 09/25/23 09/25/23 09/25/23 08:01 09:05 09:42 Temperature 36.4 C L Heart Rate 58 L Heart Rate [ 57 L Brachial] Respiratory 16 16 Rate Blood Pressure 120/57 L Blood Pressure 112/56 L [Right Brachial artery] O2 Saturation 100 93 If not protocol 2 2 2 : Oxygen Flow, liters/minute 09/25/23 09/25/23 09/25/23 09:54 10:17 12:37 Temperature 36.4 C L 36.6 C 36.9 C Heart Rate Heart Rate [ 54 L 62 53 L Brachial] Respiratory 18 18 16 Rate Blood Pressure Blood Pressure 114/56 L 112/61 120/53 L [Right Brachial artery] O2 Saturation 100 95 100 If not protocol 2 2 2 : Oxygen Flow, liters/minute 09/25/23 09/25/23 09/25/23 12:49 13:05 16:04 Temperature 36.5 C 36.7 C 36.8 C Heart Rate Heart Rate [ 57 L 58 L 63 Brachial] Respiratory 16 18 18 Rate Blood Pressure Blood Pressure 132/60 H 155/64 H 153/64 H [Right Brachial artery] O2 Saturation 100 100 100 If not protocol 2 2 2 : Oxygen Flow, liters/minute 09/25/23 09/25/23 09/25/23 16:10 22:55 23:30 Temperature 36.8 C 36.6 C Heart Rate Heart Rate [ 63 51 L Brachial] Respiratory 18 16 Rate Blood Pressure Blood Pressure 153/64 H 144/79 H [Right Brachial artery] O2 Saturation 100 100 If not protocol 2 1 1 : Oxygen Flow, liters/minute Oxygen O2 Source Nasal cannula I&O (Last 24 Hrs): Intake and Output Totals x24h 09/24/23 09/25/23 09/26/23 23:59 23:59 23:59 Intake Total 1413.500 Output Total 4100 1725 Balance -2686.500 -1725 General: Alert, Oriented x3, Cooperative HEENT: Atraumatic, PERRLA, EOMI Neck: Supple, No JVD Neuro: Alert, CN 2-12 Grossly Intact Cardiovascular: Regular rate Respiratory: Chest non-tender, No respiratory distress Abdomen: Normal bowel sounds, Soft, No tenderness Extremities: No edema Skin: No rashes, No breakdown - Results Results: Laboratory Results WBC 7.1 x10^3/uL (4.8-10.8) 09/26/23 05:12 RBC 3.25 10^6/uL (4.70-6.10) L 09/26/23 05:12 Hgb 9.6 g/dL (14.0-18.0) L 09/26/23 05:12 Hct 27.5 % (42.0-52.0) L 09/26/23 05:12 MCV 84.6 fL (80.0-94.0) 09/26/23 05:12 MCH 29.5 pg (27.0-31.0) 09/26/23 05:12 MCHC 34.9 g/dL (32.0-36.0) 09/26/23 05:12 RDW 15.3 % (12.0-15.0) H 09/26/23 05:12 Plt Count 414 10^3/uL (130-450) 09/26/23 05:12 MPV 8.8 fL (7.4-11.4) 09/26/23 05:12 Neut # (Auto) 5.4 10^3/uL (1.5-6.6) 09/26/23 05:12 Lymph # (Auto) 1.1 10^3/uL (1.5-3.5) L 09/26/23 05:12 [place] # (Auto) 0.5 10^3/uL (0.0-1.0) 09/26/23 05:12 Eos # (Auto) 0.1 10^3/uL (0.0-0.7) 09/26/23 05:12 Baso # (Auto) 0.0 10^3/uL (0.0-0.1) 09/26/23 05:12 Absolute Nucleated RBC 0.00 x10^3/uL 09/26/23 05:12 Nucleated RBC % 0.0 /100WBC 09/26/23 05:12 PT 13.5 secs (9.9-12.6) H 09/25/23 04:53 INR 1.3 (0.8-1.2) H 09/25/23 04:53 Sodium 134 mmol/L (135-145) L 09/26/23 05:12 Potassium 3.1 mmol/L (3.5-4.5) L 09/26/23 05:12 Chloride 105 mmol/L (101-111) 09/26/23 05:12 Carbon Dioxide 23 mmol/L (21-32) 09/26/23 05:12 Anion Gap 6.0 (6-13) 09/26/23 05:12 BUN 6 mg/dL (6-20) 09/26/23 05:12 Creatinine 0.6 mg/dL (0.6-1.3) 09/26/23 05:12 Estimated GFR (MDRD) 131 (>89) 09/26/23 05:12 Glucose 92 mg/dL (74-104) 09/26/23 05:12 Calcium 8.1 mg/dL (8.5-10.3) L 09/26/23 05:12 Total Bilirubin 0.9 mg/dL (0.2-1.0) 09/25/23 17:47 AST 21 IU/L (10-42) 09/25/23 17:47 ALT 12 IU/L (10-60) 09/25/23 17:47 Alkaline Phosphatase 27 IU/L (42-121) L 09/25/23 17:47 Troponin I High Sens 10.3 ng/L (2.3-19.7) 09/25/23 04:50 Total Protein 5.6 g/dL (6.4-8.9) L 09/25/23 17:47 Albumin 3.5 g/dL (3.2-5.5) 09/25/23 17:47 Globulin 2.1 g/dL (2.1-4.2) 09/25/23 17:47 Albumin/Globulin Ratio 1.7 (1.0-2.2) 09/25/23 17:47 Lipase 22 U/L (11-82) 09/25/23 04:53 Total PSA 0.868 ng/mL (0.000-2.000) 09/25/23 17:47 TSH 8.31 uIU/mL (0.34-5.60) H 09/25/23 04:50 Free T4 Direct 0.76 ng/dL (0.58-1.64) 09/25/23 04:50 Urine Color YELLOW 09/25/23 13:10 Urine Clarity CLEAR (CLEAR) 09/25/23 13:10 Urine pH 6.0 PH (5.0-7.5) 09/25/23 13:10 Ur Specific [place] 1.010 (1.002-1.030) 09/25/23 13:10 Urine Protein NEGATIVE mg/dL (NEGATIVE) 09/25/23 13:10 Urine Glucose (UA) NEGATIVE mg/dL (NEGATIVE) 09/25/23 13:10 Urine Ketones 15 mg/dL (NEGATIVE) H 09/25/23 13:10 Urine Occult Blood NEGATIVE (NEGATIVE) 09/25/23 13:10 Urine Nitrite NEGATIVE (NEGATIVE) 09/25/23 13:10 Urine Bilirubin NEGATIVE (NEGATIVE) 09/25/23 13:10 Urine Urobilinogen 0.2 (NORMAL) E.U./dL (NORMAL) 09/25/23 13:10 Ur Leukocyte Esterase NEGATIVE (NEGATIVE) 09/25/23 13:10 Ur Microscopic Review NOT INDICATED 09/25/23 13:10 Urine Culture Comments NOT INDICATED 09/25/23 13:10 Blood Type O POSITIVE 09/25/23 05:46 Blood Type Recheck O POSITIVE 09/25/23 04:53 Antibody Screen NEGATIVE 09/25/23 05:46 Crossmatch IS Only See Detail 09/25/23 05:46 Sepsis Event Note (H) - Evaluation Current Stage of Sepsis: Ruled out ABX Reporting Has patient been on IV antibiotics over the past 48 hours?: No Current Medications - Current Medications Current Medications: Active Medications Acetaminophen (Acetaminophen 325 Mg Tablet) 650 mg PO Q4HR PRN PRN Reason: Pain 1 to 4, or Fever Last Admin: 09/25/23 19:06 Dose: 650 mg Atorvastatin Calcium (Atorvastatin 10 Mg Tablet) 10 mg PO QPM [facility] Last Admin: 09/25/23 20:31 Dose: 10 mg Pantoprazole Sodium 80 mg/ (Sodium Chloride) 100 mls @ 10 mls/hr IV .Q10H [facility] Last Infusion: 09/26/23 17:44 Dose: 10 mls/hr Levothyroxine Sodium (Levothyroxine 88 Mcg Tablet) 88 mcg PO QDAC [facility] Last Admin: 09/26/23 06:44 Dose: 88 mcg Losartan Potassium (Losartan 50 Mg Tablet) 50 mg PO DAILY [facility] Last Admin: 09/26/23 08:44 Dose: 50 mg Ondansetron HCl (Ondansetron Odt 4 Mg Tablet) 4 mg TL Q6HR PRN PRN Reason: Nausea / Vomiting Last Admin: 09/25/23 16:37 Dose: 4 mg Oxycodone HCl (Oxycodone 5 Mg Tablet) 5 mg PO Q4HR PRN PRN Reason: Pain 5 to 7 Prochlorperazine Edisylate (Prochlorperazine 10 Mg/2 Ml Vial) 10 mg IVP Q6HR PRN PRN Reason: Nausea / Vomiting Sodium Chloride (Sodium Chloride Flush 0.9% 10 Ml Syringe) 10 ml IVP PRN PRN PRN Reason: NEEDED PER PROVIDER ORDERS Last Admin: 09/26/23 17:44 Dose: 10 ml Sodium Chloride (Sodium Chloride Flush 0.9% 10 Ml Syringe) 10 ml IVP 0100,0900,1700 [facility] Last Admin: 09/26/23 17:21 Dose: Not Given Sodium Sulfate/Potass Sulf/Mag Sulf (Sodium/Potassium/Mag Sulfates 354 Ml Prep Kit) 177 ml PO 1800,0500 [facility] Stop: 09/27/23 05:01 Acetaminophen [Tylenol] 1,000 mg PO Q6H PRN 09/25/23 Atorvastatin [Lipitor] 20 mg PO QPM 09/25/23 Ibuprofen [Advil] 400 mg PO QID PRN 09/25/23 Levothyroxine [Synthroid] 88 mcg PO QDAC 09/25/23 Losartan Potassium 25 mg PO DAILY 09/25/23 Ondansetron HCl 4 mg PO BID PRN 09/25/23
[2023-09-26] MEDS: POTASSIUM CHLOR 10 MEQ/100 ML 10 MEQ/100 ML BAG IV SCH ×6 (08:40→20:26)
[2023-09-26] MEDS: LOSARTAN 50 MG TABLET PO SCH (08:44)
--- NOTE | 2023-09-26 10:13 | ANESTHESIA ---
Pre-Anesthesia VS, & Labs - Diagnosis anemia - Procedure EGD Vital Signs: Temp Pulse Resp BP Pulse Ox O2 Flow Rate 36.7 C 59 L 18 148/65 H 100 1 09/26/23 08:00 09/26/23 08:00 09/26/23 08:00 09/26/23 08:00 09/26/23 08:00 09/26/23 08:30 Height: 5 ft 11 in Weight (kg): 58 kg Body Mass Index: 17.8 BMI Classification: Underweight - NPO >8 hours - Lab Results Current Lab Results: Laboratory Tests 09/26/23 05:12: Sodium 134 L, Potassium 3.1 L, Chloride 105, Carbon Dioxide 23, Anion Gap 6.0, BUN 6, Creatinine 0.6, Estimated GFR (MDRD) 131, Glucose 92, Calcium 8.1 L 09/26/23 05:12: WBC 7.1, RBC 3.25 L, Hgb 9.6 L, Hct 27.5 L, MCV 84.6, MCH 29.5, MCHC 34.9, RDW 15.3 H, Plt Count 414, MPV 8.8, Neut # (Auto) 5.4, Lymph # (Auto) 1.1 L, [place] # (Auto) 0.5, Eos # (Auto) 0.1, Baso # (Auto) 0.0, Absolute Nucleated RBC 0.00, Nucleated RBC % 0.0 09/25/23 17:47: Sodium 134 L, Potassium 3.7, Chloride 106, Carbon Dioxide 20 L, Anion Gap 8.0, BUN 7, Creatinine 0.6, Estimated GFR (MDRD) 131, Glucose 88, C alcium 8.1 L, Total Bilirubin 0.9, AST 21, ALT 12, Alkaline Phosphatase 27 L, Total Protein 5.6 L, Albumin 3.5, Globulin 2.1, Albumin/Globulin Ratio 1.7 09/25/23 17:47: Total PSA 0.868 09/25/23 05:46: Blood Type O POSITIVE, Antibody Screen NEGATIVE, Crossmatch IS Only See Detail 09/25/23 04:53: Blood Type Recheck O POSITIVE 09/25/23 04:53: Sodium 128 L, Potassium 3.1 L, Chloride 98 L, Carbon Dioxide 23, Anion Gap 7.0, BUN 10, Creatinine 0.6, Estimated GFR (MDRD) 131, Glucose 157 H, Calcium 8.1 L, Total Bilirubin 0.5, AST 22, ALT 13, Alkaline Phosphatase 27 L, Total Protein 5.9 L, Albumin 3.8, Globulin 2.1, Albumin/Globulin Ratio 1.8, Lipase 22 09/25/23 04:53: PT 13.5 H, INR 1.3 H 09/25/23 04:53: WBC 6.6, RBC 2.09 L, Hgb 6.0 L*, Hct 18.5 L*, MCV 88.5, MCH 28.7, MCHC 32.4, RDW 15.3 H, Plt Count 373, MPV 8.8, Neut # (Auto) 5.2, Lymph # (Auto) 0.8 L, [place] # (Auto) 0.6, Eos # (Auto) 0.0, Baso # (Auto) 0.0, Absolute Nucleated RBC 0.00, Nucleated RBC % 0.0 09/25/23 04:50: Free T4 Direct 0.76 09/25/23 04:50: Troponin I High Sens 10.3 09/25/23 04:50: TSH 8.31 H Fish Bones: 09/26/23 05:12 09/26/23 05:12 Home Medications and Allergies Home Medications: Ambulatory Orders Acetaminophen [Tylenol] 1,000 mg PO Q6H PRN 09/25/23 Atorvastatin [Lipitor] 20 mg PO QPM 09/25/23 Ibuprofen [Advil] 400 mg PO QID PRN 09/25/23 Levothyroxine [Synthroid] 88 mcg PO QDAC 09/25/23 Losartan Potassium 25 mg PO DAILY 09/25/23 Ondansetron HCl 4 mg PO BID PRN 09/25/23 Active Medications Acetaminophen (Acetaminophen 325 Mg Tablet) 650 mg PO Q4HR PRN PRN Reason: Pain 1 to 4, or Fever Last Admin: 09/25/23 19:06 Dose: 650 mg Atorvastatin Calcium (Atorvastatin 10 Mg Tablet) 10 mg PO QPM RISHI Last Admin: 09/25/23 20:31 Dose: 10 mg Pantoprazole Sodium 80 mg/ (Sodium Chloride) 100 mls @ 10 mls/hr IV .Q10H RISHI Last Infusion: 09/25/23 22:33 Dose: 10 mls/hr Potassium Chloride (Potassium Chloride) 10 meq in 100 mls @ 100 mls/hr IV Q1H [facility] Stop: 09/26/23 11:59 Last Admin: 09/26/23 08:40 Dose: 100 mls/hr Levothyroxine Sodium (Levothyroxine 88 Mcg Tablet) 88 mcg PO QDAC [facility] Last Admin: 09/26/23 06:44 Dose: 88 mcg Losartan Potassium (Losartan 50 Mg Tablet) 50 mg PO DAILY [facility] Last Admin: 09/26/23 08:44 Dose: 50 mg Ondansetron HCl (Ondansetron Odt 4 Mg Tablet) 4 mg TL Q6HR PRN PRN Reason: Nausea / Vomiting Last Admin: 09/25/23 16:37 Dose: 4 mg Oxycodone HCl (Oxycodone 5 Mg Tablet) 5 mg PO Q4HR PRN PRN Reason: Pain 5 to 7 Prochlorperazine Edisylate (Prochlorperazine 10 Mg/2 Ml Vial) 10 mg IVP Q6HR PRN PRN Reason: Nausea / Vomiting Sodium Chloride (Sodium Chloride Flush 0.9% 10 Ml Syringe) 10 ml IVP PRN PRN PRN Reason: NEEDED PER PROVIDER ORDERS Sodium Chloride (Sodium Chloride Flush 0.9% 10 Ml Syringe) 10 ml IVP 0100,0900,1700 [facility] Last Admin: 09/26/23 08:06 Dose: Not Given Acetaminophen [Tylenol] 1,000 mg PO Q6H PRN 09/25/23 Atorvastatin [Lipitor] 20 mg PO QPM 09/25/23 Ibuprofen [Advil] 400 mg PO QID PRN 09/25/23 Levothyroxine [Synthroid] 88 mcg PO QDAC 09/25/23 Losartan Potassium 25 mg PO DAILY 09/25/23 Ondansetron HCl 4 mg PO BID PRN 09/25/23 Allergies/Adverse Reactions: Allergies Allergy/AdvReac Type Severity Reaction Status Date / Time Penicillins Allergy Hives Verified 07/05/18 18:47 tetanus and diphtheria Allergy Hives Verified 07/05/18 18:47 toxoids Anes History & Medical History - Anesthetic History Anesthesia Complications: reports: No previous complications Family history of Anesthesia Complications: Denies Family history of Malignant Hyperthermia: Denies - Medical History Cardiovascular: reports: None, Hypertension, High cholesterol Pulmonary: reports: None Gastrointestinal: reports: Ulcers, Other (Celiac disease) Urinary: reports: None Neuro: reports: Other (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, 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) Musculoskeletal: reports: None Endocrine/Autoimmune: reports: HyPOthyroidism Skin: reports: None Smoking Status: Never smoker Psychosocial: reports: Alcohol, Cannabis - Surgical History General: reports: EGD, Other (sebaceous cyst excision) Exam General: Alert, Oriented x3, Cooperative Dental: WNL Mouth Openin Fingerbreadth Neck Mobility: Normal Mallampati classification: I Thyromental Distance: 4-6 cm Respiratory: Lungs clear Cardiovascular: Regular rate Plan Anesthesia Type: General, Total IV Consent for Procedure(s) Verified and Reviewed: Yes Code Status: Attempt Resuscitation ASA classification: 3-Severe systemic disease Is this case an emergency?: No
[2023-09-26] MEDS: PANTOPRAZOLE 80 MG in SODIUM CHLORIDE 0.9% 100ML 100 ML IV SCH (10:20)
[2023-09-26] MEDS ORDERED: PROPOFOL 200 MG/20 ML VIAL IVP ONE ×2 (12:17→13:29)
[2023-09-26] MEDS ORDERED: LIDOCAINE-MPF 2% 5 ML VIAL ONE (12:18)
[2023-09-26] MEDS ORDERED: LACTATED RINGERS 1,000 ML IV ONE (13:27)
[2023-09-26] MEDS ORDERED: ePHEDrine 50 MG/ML VIAL IVP ONE (13:29)
--- NOTE | 2023-09-26 13:48 | PROVIDER PROGRESS NOTE ---
Progress Note General Surgery Brief Operative Note - See "Provation" for details The EGD was performed under monitored sedation. The exam was normal except for a small duodenal diverticulum. There was no evidence of old or fresh blood in any portion of the UGI tract examined. Recommendations: Continue PPI Consider colonoscopy because right sided colon lesions/polyps oftentimes present with melena and anemia. He would require a bowel preparation for this procedure which if he completes today, can be performed tomorrow. Zain Noel MD General Surgery Service
[2023-09-26] MEDS ORDERED: ePHEDrine 50 MG/ML VIAL IVP PRN ×2 (13:52→14:22)
[2023-09-26] MEDS ORDERED: MORPHINE 2 MG/ML CARPUJECT IVP PRN ×2 (13:52→14:22)
[2023-09-26] MEDS ORDERED: fentaNYL 100 MCG/2 ML VIAL IVP PRN ×2 (13:52→14:22)
[2023-09-26] MEDS ORDERED: ATROPINE ABBOJECT 1 MG/10 ML SYRINGE IVP PRN ×2 (13:52→14:22)
[2023-09-26] MEDS ORDERED: HYDROmorphone 0.5 MG/0.5 ML SYRINGE IVP PRN ×2 (13:52→14:22)
[2023-09-26] MEDS ORDERED: NALOXONE 0.4 MG/ML VIAL IVP PRN ×2 (13:52→14:22)
[2023-09-26] MEDS ORDERED: METOCLOPRAMIDE 10 MG/2 ML VIAL IVP PRN ×2 (13:52→14:21)
[2023-09-26] MEDS ORDERED: ONDANSETRON 4 MG/2 ML VIAL IVP PRN ×2 (13:52→14:22)
[2023-09-26] MEDS ORDERED: LACTATED RINGERS 1,000 ML IV SCH ×2 (14:00→14:22)
--- NOTE | 2023-09-26 14:42 | PROVIDER PROGRESS NOTE ---
Progress Note General Surgery Pre-op Consent Note: Mikhail was admitted with anemia and melena. He has received 2 units of PRBC's a nd his Hgb is now 9 gm/dL. Upper endoscopy was performed this morning and does not conclusively demonstrate a bleeding site. It is my recommendation that he undergo colonoscopy to evaluate for a lower GI tract etiology of his acute on chronic blood loss anemia. Consent: Mikhail has been counseled for the procedure, it's indications, risks, benefits and expected outcome as well as alternative therapies. We specifically discussed risks associated with anesthesia and placement of the endoscope which includes bleeding and injury to the colon which may require surgical intervention. Mikhail understands, agrees, and consents to the proposed operative strategy and requests that we proceed with the procedure as outlined in our discussion. John Noel MD, FACS General Surgery Service
[2023-09-26 17:21] LABS: ACETAMINOPHEN 0.2 ug/mL; POTASSIUM 3.5 mmol/L (3.5-4.5)
[2023-09-26] MEDS: SODIUM/POTASSIUM/MAG SULFATES 354 ML PREP KIT PO SCH (18:18)
[2023-09-26] MEDS ORDERED: DEXTROSE 5%-0.9% NACL 1,000 ML IV SCH (19:00)
[2023-09-26] MEDS: ATORVASTATIN 10 MG TABLET PO SCH (20:26)
[2023-09-26] MEDS ORDERED: LORazepam 2 MG/ML VIAL IVP ONE (21:33)
--- NOTE | 2023-09-26 21:35 | PROVIDER PROGRESS NOTE ---
Hospitalist Cross-cover Note - Cross-Cover Note Cross-Cover Note: Called by RN stating "Dx: Acute Anemia Situation: Patient had called 911 requesting someone to check his at home because "someone is going to get hurt." Patient had EGD today and had confusion on and off. Patient is very anxious and states he wants to leave the hospital. Can we please get anxiety medication for him?" Discussed at length with STANLEY Valle, tried to reassure patient also offered to call his , he continues to feel anxious, hence one dose of Ativan 1 mg ivp x one dose ordered.
[2023-09-27] MEDS ORDERED: SODIUM CHLORIDE 0.9% 250 ML IV ONE (00:31)
[2023-09-27] MEDS: SODIUM CHLORIDE FLUSH 0.9% 10 ML SYRINGE IVP SCH ×3 (00:37→17:55)
[2023-09-27] MEDS: POTASSIUM CHLOR 10 MEQ/100 ML 10 MEQ/100 ML BAG IV SCH ×2 (00:37→01:46)
[2023-09-27] MEDS: SODIUM/POTASSIUM/MAG SULFATES 354 ML PREP KIT PO SCH (05:34)
[2023-09-27 05:58] LABS: BASOPHILS % (AUTO) 0.4 %; EOSINOPHILS % (AUTO) 0.4 %; HCT - HEMATOCRIT 33.2 % (42.0-52.0); HGB - HEMOGLOBIN 11.3 g/dL (14.0-18.0); LYMPHOCYTES # (AUTO) 1.4 10^3/uL (1.5-3.5); MEAN CORPUSCULAR HEMOGLOBIN 29.4 pg (27.0-31.0); MEAN CORPUSCULAR VOLUME 86.5 fL (80.0-94.0); MEAN PLATELET VOLUME 8.4 fL (7.4-11.4); MONOCYTES % (AUTO) 10.7 %; NEUTROPHILS # (AUTO) 7.2 10^3/uL (1.5-6.6); NEUTROPHILS % (AUTO) 74.2 %; PLT - PLATELET COUNT 567 10^3/uL (130-450); RED BLOOD COUNT 3.84 10^6/uL (4.70-6.10); WHITE BLOOD COUNT 9.7 x10^3/uL (4.8-10.8)
[2023-09-27 06:10] LABS: CREATININE 0.7 mg/dL (0.6-1.3); POTASSIUM 4.1 mmol/L (3.5-4.5)
[2023-09-27] MEDS: PANTOPRAZOLE 40 MG TABLET PO SCH (06:11)
[2023-09-27] MEDS: LEVOTHYROXINE 100 MCG TABLET PO SCH (06:11)
[2023-09-27] MEDS: LOSARTAN 50 MG TABLET PO SCH (08:38)
--- NOTE | 2023-09-27 11:24 | ANESTHESIA POST OP EVALUATION ---
Anesthesia Post Eval - Post Anesthesia Eval Vitals: Last Vital Signs Temp 36.3 C L 09/27/23 08:00 Pulse 71 09/27/23 08:00 Resp 18 09/27/23 08:00 BP 135/64 H 09/27/23 08:00 Pulse Ox 100 09/27/23 08:00 O2 Flow Rate 1 09/26/23 08:30 CV Function Including HR & BP: Stable Pain Control: Satisfactory Nausea & Vomiting: Negative Mental Status: Baseline Respiratory Status: Airway Patent Hydration Status: Satisfactory Anesthesia Complications: None
--- NOTE | 2023-09-27 11:26 | ANESTHESIA ---
Pre-Anesthesia VS, & Labs - Diagnosis GI bleed - Procedure colonoscopy Vital Signs: Temp Pulse Resp BP Pulse Ox O2 Flow Rate 36.3 C L 71 18 135/64 H 100 1 09/27/23 08:00 09/27/23 08:00 09/27/23 08:00 09/27/23 08:00 09/27/23 08:00 09/26/23 08:30 Height: 5 ft 11 in Weight (kg): 58 kg Body Mass Index: 17.8 BMI Classification: Underweight - NPO Other (prep as directed) - Lab Results Current Lab Results: Laboratory Tests 09/27/23 04:25: Sodium 137, Potassium 4.1, Chloride 106, Carbon Dioxide 21, Anion Gap 10.0, BUN 12, Creatinine 0.7, Estimated GFR (MDRD) 110, Glucose 71 L, Calcium 9.0 09/27/23 04:25: WBC 9.7, RBC 3.84 L, Hgb 11.3 L, Hct 33.2 L, MCV 86.5, MCH 29.4, MCHC 34.0, RDW 16.0 H, Plt Count 567 H, MPV 8.4, Neut # (Auto) 7.2 H, Lymph # (Auto) 1.4 L, [place] # (Auto) 1.0, Eos # (Auto) 0.0, Baso # (Auto) 0.0, Absolute Nucleated RBC 0.00, Nucleated RBC % 0.0 09/26/23 16:42: Potassium 3.5, Iron 22 L, TIBC 463 H, % Saturation 5 L, Transferrin 331, Acetaminophen 0.2 09/26/23 05:12: Sodium 134 L, Potassium 3.1 L, Chloride 105, Carbon Dioxide 23, Anion Gap 6.0, BUN 6, Creatinine 0.6, Estimated GFR (MDRD) 131, Glucose 92, Calcium 8.1 L 09/26/23 05:12: WBC 7.1, RBC 3.25 L, Hgb 9.6 L, Hct 27.5 L, MCV 84.6, MCH 29.5, MCHC 34.9, RDW 15.3 H, Plt Count 414, MPV 8.8, Neut # (Auto) 5.4, Lymph # (Auto) 1.1 L, [place] # (Auto) 0.5, Eos # (Auto) 0.1, Baso # (Auto) 0.0, Absolute Nucleated RBC 0.00, Nucleated RBC % 0.0 09/25/23 17:47: Sodium 134 L, Potassium 3.7, Chloride 106, Carbon Dioxide 20 L, Anion Gap 8.0, BUN 7, Creatinine 0.6, Estimated GFR (MDRD) 131, Glucose 88, Calcium 8.1 L, Total Bilirubin 0.9, AST 21, ALT 12, Alkaline Phosphatase 27 L, Total Protein 5.6 L, Albumin 3.5, Globulin 2.1, Albumin/Globulin Ratio 1.7 09/25/23 17:47: Total PSA 0.868 09/25/23 05:46: Blood Type O POSITIVE, Antibody Screen NEGATIVE, Crossmatch IS Only See Detail 09/25/23 04:53: Blood Type Recheck O POSITIVE 09/25/23 04:53: Sodium 128 L, Potassium 3.1 L, Chloride 98 L, Carbon Dioxide 23, Anion Gap 7.0, BUN 10, Creatinine 0.6, Estimated GFR (MDRD) 131, Glucose 157 H, Calcium 8.1 L, Total Bilirubin 0.5, AST 22, ALT 13, Alkaline Phosphatase 27 L, Total Protein 5.9 L, Albumin 3.8, Globulin 2.1, Albumin/Globulin Ratio 1.8, Lipase 22 09/25/23 04:53: PT 13.5 H, INR 1.3 H 09/25/23 04:53: WBC 6.6, RBC 2.09 L, Hgb 6.0 L*, Hct 18.5 L*, MCV 88.5, MCH 28.7, MCHC 32.4, RDW 15.3 H, Plt Count 373, MPV 8.8, Neut # (Auto) 5.2, Lymph # (Auto) 0.8 L, [place] # (Auto) 0.6, Eos # (Auto) 0.0, Baso # (Auto) 0.0, Absolute Nucleated RBC 0.00, Nucleated RBC % 0.0 09/25/23 04:50: Free T4 Direct 0.76 09/25/23 04:50: Troponin I High Sens 10.3 09/25/23 04:50: TSH 8.31 H Fish Bones: 09/27/23 04:25 09/27/23 04:25 Home Medications and Allergies Home Medications: Ambulatory Orders Acetaminophen [Tylenol] 1,000 mg PO Q6H PRN 09/25/23 Atorvastatin [Lipitor] 20 mg PO QPM 09/25/23 Ibuprofen [Advil] 400 mg PO QID PRN 09/25/23 Levothyroxine [Synthroid] 88 mcg PO QDAC 09/25/23 Losartan Potassium 25 mg PO DAILY 09/25/23 Ondansetron HCl 4 mg PO BID PRN 09/25/23 Active Medications Acetaminophen (Acetaminophen 325 Mg Tablet) 650 mg PO Q4HR PRN PRN Reason: Pain 1 to 4, or Fever Last Admin: 09/25/23 19:06 Dose: 650 mg Atorvastatin Calcium (Atorvastatin 10 Mg Tablet) 10 mg PO QPM [facility] Last Admin: 09/26/23 20:26 Dose: Not Given Levothyroxine Sodium (Levothyroxine 100 Mcg Tablet) 100 mcg PO QDAC [facility] Last Admin: 09/27/23 06:11 Dose: 100 mcg Losartan Potassium (Losartan 50 Mg Tablet) 50 mg PO DAILY [facility] Last Admin: 09/27/23 08:38 Dose: 50 mg Ondansetron HCl (Ondansetron Odt 4 Mg Tablet) 4 mg TL Q6HR PRN PRN Reason: Nausea / Vomiting Last Admin: 09/25/23 16:37 Dose: 4 mg Oxycodone HCl (Oxycodone 5 Mg Tablet) 5 mg PO Q4HR PRN PRN Reason: Pain 5 to 7 Pantoprazole Sodium (Pantoprazole 40 Mg Tablet) 40 mg PO QDAC [facility] Last Admin: 09/27/23 06:11 Dose: 40 mg Prochlorperazine Edisylate (Prochlorperazine 10 Mg/2 Ml Vial) 10 mg IVP Q6HR PRN PRN Reason: Nausea / Vomiting Sodium Chloride (Sodium Chloride Flush 0.9% 10 Ml Syringe) 10 ml IVP PRN PRN PRN Reason: NEEDED PER PROVIDER ORDERS Last Admin: 09/26/23 17:44 Dose: 10 ml Sodium Chloride (Sodium Chloride Flush 0.9% 10 Ml Syringe) 10 ml IVP 0100,0900,1700 [facility] Last Admin: 09/27/23 00:37 Dose: 10 ml Acetaminophen [Tylenol] 1,000 mg PO Q6H PRN 09/25/23 Atorvastatin [Lipitor] 20 mg PO QPM 09/25/23 Ibuprofen [Advil] 400 mg PO QID PRN 09/25/23 Levothyroxine [Synthroid] 88 mcg PO QDAC 09/25/23 Losartan Potassium 25 mg PO DAILY 09/25/23 Ondansetron HCl 4 mg PO BID PRN 09/25/23 Allergies/Adverse Reactions: Allergies Allergy/AdvReac Type Severity Reaction Status Date / Time Penicillins Allergy Hives Verified 07/05/18 18:47 tetanus and diphtheria Allergy Hives Verified 07/05/18 18:47 toxoids Anes History & Medical History - Anesthetic History Anesthesia Complications: reports: No previous complications - Medical History Cardiovascular: reports: None, Hypertension, High cholesterol Pulmonary: reports: None Gastrointestinal: reports: Ulcers, Other (Celiac disease) Urinary: reports: None Neuro: reports: Other (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, 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) Musculoskeletal: reports: None Endocrine/Autoimmune: reports: HyPOthyroidism Skin: reports: None Smoking Status: Never smoker Psychosocial: reports: Alcohol, Cannabis - Surgical History General: reports: EGD, Other (sebaceous cyst excision) Exam General: Alert Dental: WNL Mouth Opening: Greater than 4 Fingerbreadths Neck Mobility: Normal Mallampati classification: I Thyromental Distance: greater than 6 cm Respiratory: Lungs clear Cardiovascular: Regular rate Plan Anesthesia Type: Total IV Consent for Procedure(s) Verified and Reviewed: Yes Code Status: Attempt Resuscitation ASA classification: 3-Severe systemic disease Is this case an emergency?: No
[2023-09-27] MEDS ORDERED: PROPOFOL 500 MG/50 ML 500 MG/50 ML VIAL ONE (12:40)
[2023-09-27] MEDS ORDERED: PHENYLEPHRINE HCL 0.5 MG/5 ML AMPULE ONE (13:19)
--- NOTE | 2023-09-27 13:23 | PROVIDER PROGRESS NOTE ---
Progress Note General Surgery Brief Procedure Note (see "Provation" for details) Preop Diagnosis: Melena without a definite UGI source Postop Diagnosis: Diverticulosis of the sigmoid colon. No colon polyps, neoplasms, or colitis. TI appears normal and no blood from TI orifice. Procedure: Colonoscopy Recommendation: 1) Continue PPI for occult UGI bleed 2) Mylanta for heartburn 3) Resume diet as tolerated John Noel MD General Surgery Service
--- NOTE | 2023-09-27 14:53 | PROVIDER PROGRESS NOTE ---
Assessment/Plan - Problem List (1) Anemia Qualifiers: Anemia type: unspecified type Qualified Code(s): D64.9 - Anemia, unspecified Assessment/Plan: Iron study shows low Iron panel After 2 PRBC given, hemoglobin improved to 9.6 appropriately EGD done 09/26 and No source of bleeding noted but a diverticulum of stomach seen, which may have been an ulcer. I spoke to Dr Noel today Today 09/27 colonoscopy was done and no active source of bleeding was seen. Plan: Follow Hgb daily Cont empiric PPI as per surgeon (2) Suicide attempt Assessment/Plan: Overnight, he was in his bathroom, broke his glasses and used a piece of shard of glass to cut his neck on both sides. The night Telemedicine doctor was inf castro. A telepsych consult was ordered. Plan: I ordered one-to-one observation now He needs soft silverware and dinnerware We are still awaiting the Telepsych evaluation Social work is also aware of this attempt that SW may need to help us with a mental health eval and poss transfer to In psych (3) Near syncope Assessment/Plan: He was apparently near syncopal before admission. We learned that he intentionally ingested 10 to 15 tablets of oxycodone for suicidal attempt Discussed with poison control at [phone], who recommended to check acetaminophen level, and do drug screen. Since patient vitals are within normal limits, no altered mental status, no concerns about further work-up Plan: As in #2 (4) Hyponatremia Assessment/Plan: Improving daily Plan: Continue monitoring electrolytes. (5) Hypokalemia Assessment/Plan: Potassium was 3.1, EKG appeared stable, no U waves K improved to 3.5 after 40 mEq KCl given. Given 10 mEq IV 4 times to ensure potassium in good level due to GI loss from bowel prep Plan: Follow BMP daily (6) Hypothyroidism Assessment/Plan: TSH 8, Free T4 within normal low level Plan: We increased Synthroid dose from 88 to 100 mcg, recommend patient to follow-up TSH and T4 as outpatient (7) Cachexia Assessment/Plan: His BMI is 17 This may impact his strength, his hospital stay (8) Celiac disease Assessment/Plan: Gluten-free diet when diet resumes - Current Meds Current Meds: Current Medications Generic Name Dose Route Start Last Admin Trade Name Freq PRN Reason Stop Dose Admin Acetaminophen 650 mg 10/29/23 08:16 09/25/23 19:06 Acetaminophen 325 Mg Tablet PO 650 mg Q4HR PRN Administration Pain 1 to 4, or Fever Atorvastatin Calcium 10 mg 09/25/23 21:00 09/26/23 20:26 Atorvastatin 10 Mg Tablet PO Not Given QPM RISHI Levothyroxine Sodium 100 mcg 09/27/23 07:00 09/27/23 06:11 Levothyroxine 100 Mcg Tablet PO 100 mcg QDAC RISHI Administration Losartan Potassium 50 mg 09/26/23 09:00 09/27/23 08:38 Losartan 50 Mg Tablet PO 50 mg DAILY RISHI Administration Ondansetron HCl 4 mg 09/25/23 08:16 09/25/23 16:37 Ondansetron Odt 4 Mg Tablet TL 4 mg Q6HR PRN Administration Nausea / Vomiting Pantoprazole Sodium 40 mg 09/27/23 07:00 09/27/23 06:11 Pantoprazole 40 Mg Tablet PO 40 mg QDAC RISHI Administration Sodium Chloride 10 ml 09/25/23 08:16 09/26/23 17:44 Sodium Chloride Flush 0.9% 10 Ml Syringe IVP 10 ml PRN PRN Administration NEEDED PER PROVIDER ORDERS Sodium Chloride 10 ml 09/25/23 09:00 09/27/23 00:37 Sodium Chloride Flush 0.9% 10 Ml Syringe IVP 10 ml 0100,0900,1700 RISHI Administration - Lab Result Fish Bone Diagrams: 09/27/23 04:25 09/27/23 04:25 - Additional Planning My Orders: My Active Orders 09/27/23 1:1 Safety Observation [OTHERS] Routine 09/27/23 12:05 Inpatient - Telepsych Set-up [] ONCE Subjective - Subjective Patient Reports: Other (Lethargic after sedatives given for colonoscopy today) Objective Vital Signs: Vital Signs - 24 hr 09/26/23 09/27/23 09/27/23 15:56 00:38 03:45 Temperature 36.5 C 36.5 C Heart Rate [ 90 74 66 Brachial] Respiratory 20 14 Rate Blood Pressure 166/71 H 124/64 123/63 [Right Brachial artery] O2 Saturation 100 100 98 09/27/23 09/27/23 09/27/23 08:00 13:20 13:35 Temperature 36.3 C L 36.7 C 36.7 C Heart Rate [ 71 78 77 Brachial] Respiratory 18 17 18 Rate Blood Pressure 135/64 H 83/41 L 84/41 L [Right Brachial artery] O2 Saturation 100 98 100 09/27/23 09/27/23 09/27/23 13:50 14:05 14:35 Temperature 36.6 C 36.6 C 36.7 C Heart Rate [ 71 83 74 Brachial] Respiratory 18 18 20 Rate Blood Pressure 90/45 L 119/61 115/60 [Right Brachial artery] O2 Saturation 99 100 100 Oxygen O2 Source Room air I&O (Last 24 Hrs): Intake and Output Totals x24h 09/25/23 09/26/23 09/27/23 23:59 23:59 23:59 Intake Total 9857.982 4473.499 1200 Output Total 4100 3550 11 Balance -2686.500 -0301.146 1269 General: Other (Sleepy after sedatives were given for colonoscopy today. Cachectic) HEENT: Mucous membr. moist/pink, Other (Sunken eyes and cheeks) Neck: Supple Neuro: Alert, Non Focal Cardiovascular: Regular rate Respiratory: No respiratory distress Abdomen: Soft, No tenderness Extremities: No clubbing, No edema, No tenderness/swelling - Results Results: Laboratory Results WBC 9.7 x10^3/uL (4.8-10.8) 09/27/23 04:25 RBC 3.84 10^6/uL (4.70-6.10) L 09/27/23 04:25 Hgb 11.3 g/dL (14.0-18.0) L 09/27/23 04:25 Hct 33.2 % (42.0-52.0) L 09/27/23 04:25 MCV 86.5 fL (80.0-94.0) 09/27/23 04:25 MCH 29.4 pg (27.0-31.0) 09/27/23 04:25 MCHC 34.0 g/dL (32.0-36.0) 09/27/23 04:25 RDW 16.0 % (12.0-15.0) H 09/27/23 04:25 Plt Count 567 10^3/uL (130-450) H 09/27/23 04:25 MPV 8.4 fL (7.4-11.4) 09/27/23 04:25 Neut # (Auto) 7.2 10^3/uL (1.5-6.6) H 09/27/23 04:25 Lymph # (Auto) 1.4 10^3/uL (1.5-3.5) L 09/27/23 04:25 [place] # (Auto) 1.0 10^3/uL (0.0-1.0) 09/27/23 04:25 Eos # (Auto) 0.0 10^3/uL (0.0-0.7) 09/27/23 04:25 Baso # (Auto) 0.0 10^3/uL (0.0-0.1) 09/27/23 04:25 Absolute Nucleated RBC 0.00 x10^3/uL 09/27/23 04:25 Nucleated RBC % 0.0 /100WBC 09/27/23 04:25 PT 13.5 secs (9.9-12.6) H 09/25/23 04:53 INR 1.3 (0.8-1.2) H 09/25/23 04:53 Sodium 137 mmol/L (135-145) 09/27/23 04:25 Potassium 4.1 mmol/L (3.5-4.5) 09/27/23 04:25 Chloride 106 mmol/L (101-111) 09/27/23 04:25 Carbon Dioxide 21 mmol/L (21-32) 09/27/23 04:25 Anion Gap 10.0 (6-13) 09/27/23 04:25 BUN 12 mg/dL (6-20) 09/27/23 04:25 Creatinine 0.7 mg/dL (0.6-1.3) 09/27/23 04:25 Estimated GFR (MDRD) 110 (>89) 09/27/23 04:25 Glucose 71 mg/dL (74-104) L 09/27/23 04:25 Calcium 9.0 mg/dL (8.5-10.3) 09/27/23 04:25 Iron 22 ug/dL (50-212) L 09/26/23 16:42 TIBC 463 ug/dL (250-450) H 09/26/23 16:42 % Saturation 5 % (20-50) L 09/26/23 16:42 Transferrin 331 mg/dL (203-362) 09/26/23 16:42 Ferritin 13.3 ng/mL (23.9-336.2) L 09/27/23 04:25 Total Bilirubin 0.9 mg/dL (0.2-1.0) 09/25/23 17:47 AST 21 IU/L (10-42) 09/25/23 17:47 ALT 12 IU/L (10-60) 09/25/23 17:47 Alkaline Phosphatase 27 IU/L (42-121) L 09/25/23 17:47 Troponin I High Sens 10.3 ng/L (2.3-19.7) 09/25/23 04:50 Total Protein 5.6 g/dL (6.4-8.9) L 09/25/23 17:47 Albumin 3.5 g/dL (3.2-5.5) 09/25/23 17:47 Globulin 2.1 g/dL (2.1-4.2) 09/25/23 17:47 Albumin/Globulin Ratio 1.7 (1.0-2.2) 09/25/23 17:47 Lipase 22 U/L (11-82) 09/25/23 04:53 Total PSA 0.868 ng/mL (0.000-2.000) 09/25/23 17:47 TSH 8.31 uIU/mL (0.34-5.60) H 09/25/23 04:50 Free T4 Direct 0.76 ng/dL (0.58-1.64) 09/25/23 04:50 Urine Color YELLOW 09/25/23 13:10 Urine Clarity CLEAR (CLEAR) 09/25/23 13:10 Urine pH 6.0 PH (5.0-7.5) 09/25/23 13:10 Ur Specific [place] 1.010 (1.002-1.030) 09/25/23 13:10 Urine Protein NEGATIVE mg/dL (NEGATIVE) 09/25/23 13:10 Urine Glucose (UA) NEGATIVE mg/dL (NEGATIVE) 09/25/23 13:10 Urine Ketones 15 mg/dL (NEGATIVE) H 09/25/23 13:10 Urine Occult Blood NEGATIVE (NEGATIVE) 09/25/23 13:10 Urine Nitrite NEGATIVE (NEGATIVE) 09/25/23 13:10 Urine Bilirubin NEGATIVE (NEGATIVE) 09/25/23 13:10 Urine Urobilinogen 0.2 (NORMAL) E.U./dL (NORMAL) 09/25/23 13:10 Ur Leukocyte Esterase NEGATIVE (NEGATIVE) 09/25/23 13:10 Ur Microscopic Review NOT INDICATED 09/25/23 13:10 Urine Culture Comments NOT INDICATED 09/25/23 13:10 Acetaminophen 0.2 ug/mL 09/26/23 16:42 Blood Type O POSITIVE 09/25/23 05:46 Blood Type Recheck O POSITIVE 09/25/23 04:53 Antibody Screen NEGATIVE 09/25/23 05:46 Crossmatch IS Only See Detail 09/25/23 05:46 Sepsis Event Note (H) - Evaluation Current Stage of Sepsis: Ruled out
[2023-09-27] MEDS: ATORVASTATIN 10 MG TABLET PO SCH (21:03)
[2023-09-27] MEDS ORDERED: LORazepam 0.5 MG TABLET PO SCH (23:45)
[2023-09-28] MEDS: SODIUM CHLORIDE FLUSH 0.9% 10 ML SYRINGE IVP SCH ×4 (01:30→23:42)
[2023-09-28 05:11] LABS: BASOPHILS # (AUTO) 0.1 10^3/uL (0.0-0.1); BASOPHILS % (AUTO) 0.7 %; EOSINOPHILS # (AUTO) 0.2 10^3/uL (0.0-0.7); EOSINOPHILS % (AUTO) 2.5 %; HGB - HEMOGLOBIN 9.8 g/dL (14.0-18.0); LYMPHOCYTES # (AUTO) 1.4 10^3/uL (1.5-3.5); LYMPHOCYTES % (AUTO) 20.6 %; MEAN CORPUSCULAR HEMOGLOBIN 29.2 pg (27.0-31.0); MEAN CORPUSCULAR HGB CONC 33.8 g/dL (32.0-36.0); MEAN CORPUSCULAR VOLUME 86.3 fL (80.0-94.0); MEAN PLATELET VOLUME 8.2 fL (7.4-11.4); MONOCYTES # (AUTO) 0.7 10^3/uL (0.0-1.0); MONOCYTES % (AUTO) 10.2 %; NEUTROPHILS # (AUTO) 4.5 10^3/uL (1.5-6.6); NEUTROPHILS % (AUTO) 65.7 %; PLT - PLATELET COUNT 459 10^3/uL (130-450); RED BLOOD COUNT 3.36 10^6/uL (4.70-6.10); WHITE BLOOD COUNT 6.8 x10^3/uL (4.8-10.8)
[2023-09-28 05:24] LABS: CALCIUM 8.8 mg/dL (8.5-10.3); CREATININE 0.7 mg/dL (0.6-1.3); POTASSIUM 3.9 mmol/L (3.5-4.5)
[2023-09-28] MEDS: LEVOTHYROXINE 100 MCG TABLET PO SCH (06:34)
[2023-09-28] MEDS: PANTOPRAZOLE 40 MG TABLET PO SCH (06:34)
[2023-09-28] MEDS: LOSARTAN 50 MG TABLET PO SCH (09:06)
--- NOTE | 2023-09-28 11:30 | TELEPSYCH PHYS NOTE ---
[facility] Telepsych Consult Consult Date: 09/28/23 (n/a) Name of Referring Provider:: Attending Reason for Consult: Suicide attempts - Suicide Risk Sreening (ASQ Tool) In the past few weeks, have you wished you were ?: Yes In the past few weeks, have you felt that you or your family would be better off if you were ?: Yes In the past week, have you been having thoughts about killing yourself?: Yes Have you ever tried to kill yourself?: Yes - Assessment Language: [place] Treasurer Required: No Cultural, Moravian or Spiritual Preferences: none identified Notes: null Chief Complaint: Psychaitric Evaluation History of Present Illness: 73 year old male presents today for psychaitric evaluation. He had a suicide attempt by overdose on 09-11 tablets oxycodone on 09-24-23. He had bleeding and needed a blood transfusion. He had another suicide attempt on while in the hospital. He was found by a nurse in his bathroom trying to cut his neck with his glasses. He reported, "I want to because I failed my ." He said something about his being in danger. I speak with Catarino with 1:1 sitter present. He states he is in the hospital because, "I went through something. I got so messed up. I started not knowing what to do because I couldn't figure things out. My thoughts were becoming fragmented. I was getting so weak and my view of the world." He feels that his memory was impaired. He felt overwhelmed by 'deep sorrow' regarding his , who has Parkinson's disease. They have been in 1979 and met in 1974, "She's the love of my life..." He starts crying. 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 She is ill in the hospital as well. He hasn't been able to find some respite care for his . He states that he started feeling depressed, "very recently." With depression came changes in m manpreet. He states he lost his, "abilities." Sleep lately has been, "I slept last night a few hours, I got good sleep, I feel really well, I'm still confused and things." He states he is, "talking non-stop." I ask about the suicide attempt prior to coming to the ED. He denies that he tried to kill himself at any point. "Please understand, it's something that happened one particluar night. WHat happened was that I was getting more and more confused. The fragmentation to know what to do next." He denies history of mental illness or suicide attempts. He denies any manic or psychotic symptoms. Energy is, "slowly coming back..." No history of IP or OP mental health treatment. No drugs/alcohol. 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 They do not have any children. Denies AVH. No HI/SI today. He still feels like a failure, but this is improving. Suicide Ideation - Homicide Ideation - Self Harm: Denies SI 2 Suicide attempts in the past week Denies HI Psychiatric History - Treatment History: Denies Community Resources Accessed: ED Family Psych History/ History of suicide: Denies Nutritional Status: No nutritional concerns - Medication & Allergies Home Medications: Ambulatory Orders Medication Instructions Recorded Confirmed Acetaminophen [Tylenol] 1,000 mg PO Q6H PRN 09/25/23 09/25/23 Atorvastatin [Lipitor] 20 mg PO QPM 09/25/23 09/25/23 Ibuprofen [Advil] 400 mg PO QID PRN 09/25/23 09/25/23 Levothyroxine [Synthroid] 88 mcg PO QDAC 09/25/23 09/25/23 Losartan Potassium 25 mg PO DAILY 09/25/23 09/25/23 Ondansetron HCl 4 mg PO BID PRN 09/25/23 09/25/23 Allergies/Adverse Reactions: Allergies Allergy/AdvReac Type Severity Reaction Status Date / Time gluten Allergy Cramps Verified 09/28/23 09:24 Penicillins Allergy Hives Verified 07/05/18 18:47 tetanus and diphtheria Allergy Hives Verified 07/05/18 18:47 toxoids - Drug & Alcohol History Does patient have Drug/ETOH history or addictive behavior?: No Use: Uses substance without health or social issues: NONE Abuse: Recurrent use of substance despite neg consequences: NONE Dependence: Experiences withdrawal or developed tolerances: NONE Dependence Issues: Mood Disorder Tobacco Details: Other - Trauma Does the patient have a history of trauma, abuse, neglect or explotation?: No History of trauma, abuse, neglect, or exploitation (Notes): Denies - Personal Information Does the patient have a history or present tendencies for violence?: None History or present tendencies for violence (Notes): "I have never even hurt an animal." Services History: Denies Does patient have any Legal Charges or Investigations?: No Legal Charges or Investigations (Notes): No Environment & Living Situation - Social, Peer-Group (Note): At home Environment & Living Situation - Social, Peer-Group (Notes): Lives with . He is her business office representative. 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) Eyes, Ears, Nose, Throat: reports: None Cardiovascular: reports: None, Hypertension, High cholesterol Respiratory: reports: None Gastrointestinal: reports: Ulcers, Other (Celiac disease) Urinary: reports: None Musculoskeletal: reports: None Skin: reports: None MRSA History: No Past Medical History - Other: See chart - Surgical History General: reports: EGD, Other (sebaceous cyst excision) Childhood History: Nothing notable discussed - Mental Status Exam Appearance and Attire: Casually groomed; white hair and cohen; hospital gown; sitting in chair Attitude and Behavior: Cooperative Speech: Hyperverbal; normal rate and volume Affect and Mood: Depressed/Anxious mood Affect is congruent and tearful Association and Thought Process: Linear Thought Content: Denies SI/HI; no delusions/paranoia noted or reported Perception: Denies AVH Sensorium, memory and orientation: Alert and oriented to self and place. Year 2022. Month September. Intellectual - Cognitive functioning: He feels his memory is impaired but improving; feels confused at times Insight and Judgement: Limited Emotional and Behavioral Functioning: No psychomotor agitation Ability to Self-Care: Intact - Personal Goals Short-term Goals: None identified Long-term Goals: None identified - Risk/Protective Factors Risk Factors: Trigger events leading to humiliation, shame and/or despair, Inadequate social supports Protective Factors / Internal: N/A Protective Factors / External: Positive therapeutic relationships - Plan Impression/Risk Assessment: 73 year old male with no psychiatric history presents today for evaluation. He had a suicide attempt on 09-24-23 and on 09-26-23, the latter attempt was in the hospital. These attempts are in the context of depression. He needed blood transfusion and hgb due to low Hgb. His Na and K were low. He reports that lately, he's felt confused and his memory has been impaired. It's not clear if this is due to delirium due to anemia and hyponatremia, or due to pseudodementia that can occur in a depressive episode in older adults. He's denying that he tried to kill himself, but then goes on about the pills he took on 09-24-23. Risk of harm to self remains elevated. Treatment - Therapy Recommendations: Inpatient psychiatric hospitalization Maintain 1:1 Pharmacological Recommendations: Defer - Problem List (1) Major depressive disorder Conclusion/Plan: IP Qualifiers: Major depression recurrence: single episode Major depression episode severity: severe Psychotic features: without psychotic features Qualified Code(s): F32.2 - Major depressive disorder, single episode, severe without psychotic features - Time Spent & Provider Location Telepsych consultation conducted via videoconferencing: Yes List names and roles of persons who participated in consult: Meaghan Covarrubias. Catarino Agee. Sitter present during interview. Charge nurse brought equipment in the room Telepsych Provider Location: Home office Time Spent (Minutes): 60 (n/a)
--- NOTE | 2023-09-28 15:22 | PROVIDER PROGRESS NOTE ---
Assessment/Plan - Problem List (1) Anemia Qualifiers: Anemia type: unspecified type Qualified Code(s): D64.9 - Anemia, unspecified Assessment/Plan: After 2 PRBC given, hemoglobin improved to 9.6 appropriately. Iron study shows low Iron panel EGD done 09/26 showed no active bleeding but a diverticulum of stomach was seen, which may have been an ulcer. On 09/27 colonoscopy was done and no active source of bleeding was seen. Plan: Patient is medically stable, and is continuing on Fe and PPI (2) Suicide attempt Assessment/Plan: Two nights ago, he was in his bathroom here, broke his glasses and used a piece of shard of glass to cut his neck on both sides. The night Telemedicine doctor was informed. A telepsych consult was ordered. No Telepsych consult was done 09/27, as it fell at the time he was having his colonoscopy. Telepsych consult was done this am and the patient needs to transferred to [facility] for depression and suicide watch to continue Plan: Awaiting transfer to [facility] 1:1 suicide watch to continue (3) Hypothyroidism Assessment/Plan: TSH 8, Free T4 within normal low level Plan: We increased Synthroid dose from 88 to 100 mcg. Pt will need a follow-up TSH and T4 checked as outpatient in several weeks (4) Cachexia Assessment/Plan: His BMI is 17 (5) Celiac disease Assessment/Plan: Gluten-free diet ordered (6) AMS Assessment/Plan: Resolved He had AMS, prompting this admission and we learned that he intentionally ingested 10 to 15 tablets of oxycodone for suicidal attempt then Discussed with poison control at [phone], who recommended to check acetaminophen level, and do drug screen. Since patient vitals are within normal limits, no altered mental status, no concerns about further work-up Plan: As in #2 (7) Hyponatremia Assessment/Plan: Resolved (8) Hypokalemia Assessment/Plan: Resolved - Current Meds Current Meds: Current Medications Generic Name Dose Route Start Last Admin Trade Name Freq PRN Reason Stop Dose Admin Acetaminophen 650 mg 09/25/23 08:16 09/25/23 19:06 Acetaminophen 325 Mg Tablet PO 650 mg Q4HR PRN Administration Pain 1 to 4, or Fever Atorvastatin Calcium 10 mg 09/25/23 21:00 09/27/23 21:03 Atorvastatin 10 Mg Tablet PO 10 mg QPM RISHI Administration Levothyroxine Sodium 100 mcg 09/27/23 07:00 09/28/23 06:34 Levothyroxine 100 Mcg Tablet PO 100 mcg QDAC RISHI Administration Lorazepam 0.5 mg 09/27/23 23:45 09/27/23 23:43 Lorazepam 0.5 Mg Tablet PO 09/28/23 23:44 0.5 mg ONCE RISHI Administration Losartan Potassium 50 mg 09/26/23 09:00 09/28/23 09:06 Losartan 50 Mg Tablet PO 50 mg DAILY RISHI Administration Ondansetron HCl 4 mg 09/25/23 08:16 09/25/23 16:37 Ondansetron Odt 4 Mg Tablet TL 4 mg Q6HR PRN Administration Nausea / Vomiting Pantoprazole Sodium 40 mg 09/27/23 07:00 09/28/23 06:34 Pantoprazole 40 Mg Tablet PO 40 mg QDAC RISHI Administration Sodium Chloride 10 ml 09/25/23 08:16 09/26/23 17:44 Sodium Chloride Flush 0.9% 10 Ml Syringe IVP 10 ml PRN PRN Administration NEEDED PER PROVIDER ORDERS Sodium Chloride 10 ml 09/25/23 09:00 09/28/23 09:06 Sodium Chloride Flush 0.9% 10 Ml Syringe IVP 10 ml 0100,0900,1700 RISHI Administration - Lab Result Fish Bone Diagrams: 09/28/23 04:58 09/28/23 04:58 - Additional Planning My Orders: My Active Orders 09/28/23 09:28 Miscellaenous Nursing Order [RC] ONCE 09/28/23 Lunch Gluten Free Diet [DIET] 09/28/23 14:40 COVID-19 [facility] Stat Subjective - Subjective Patient Reports: No Complaints, Other (He is asking to visit his who is in our ED) Objective Vital Signs: Vital Signs - 24 hr 09/27/23 09/28/23 23:44 08:00 Temperature 36.3 C L 35.4 C L Heart Rate [ 66 93 Brachial] Respiratory 16 18 Rate Blood Pressure 157/68 H 143/76 H [Right Brachial artery] O2 Saturation 100 98 Oxygen O2 Source Room air I&O (Last 24 Hrs): Intake and Output Totals x24h 09/26/23 09/27/23 09/28/23 23:59 23:59 23:59 Intake Total 2393.499 1920 860 Output Total 3550 11 0 Balance -0746.892 5489 860 General: Alert, Oriented x3 HEENT: Mucous membr. moist/pink Neck: Supple Neuro: Alert, Non Focal Cardiovascular: Regular rate Respiratory: No respiratory distress Abdomen: No tenderness Extremities: No clubbing, No edema, No tenderness/swelling - Results Results: Laboratory Results WBC 6.8 x10^3/uL (4.8-10.8) 09/28/23 04:58 RBC 3.36 10^6/uL (4.70-6.10) L 09/28/23 04:58 Hgb 9.8 g/dL (14.0-18.0) L 09/28/23 04:58 Hct 29.0 % (42.0-52.0) L 09/28/23 04:58 MCV 86.3 fL (80.0-94.0) 09/28/23 04:58 MCH 29.2 pg (27.0-31.0) 09/28/23 04:58 MCHC 33.8 g/dL (32.0-36.0) 09/28/23 04:58 RDW 16.0 % (12.0-15.0) H 09/28/23 04:58 Plt Count 459 10^3/uL (130-450) H 09/28/23 04:58 MPV 8.2 fL (7.4-11.4) 09/28/23 04:58 Neut # (Auto) 4.5 10^3/uL (1.5-6.6) 09/28/23 04:58 Lymph # (Auto) 1.4 10^3/uL (1.5-3.5) L 09/28/23 04:58 [place] # (Auto) 0.7 10^3/uL (0.0-1.0) 09/28/23 04:58 Eos # (Auto) 0.2 10^3/uL (0.0-0.7) 09/28/23 04:58 Baso # (Auto) 0.1 10^3/uL (0.0-0.1) 09/28/23 04:58 Absolute Nucleated RBC 0.00 x10^3/uL 09/28/23 04:58 Nucleated RBC % 0.0 /100WBC 09/28/23 04:58 PT 13.5 secs (9.9-12.6) H 09/25/23 04:53 INR 1.3 (0.8-1.2) H 09/25/23 04:53 Sodium 135 mmol/L (135-145) 09/28/23 04:58 Potassium 3.9 mmol/L (3.5-4.5) 09/28/23 04:58 Chloride 105 mmol/L (101-111) 09/28/23 04:58 Carbon Dioxide 22 mmol/L (21-32) 09/28/23 04:58 Anion Gap 8.0 (6-13) 09/28/23 04:58 BUN 21 mg/dL (6-20) H 09/28/23 04:58 Creatinine 0.7 mg/dL (0.6-1.3) 09/28/23 04:58 Estimated GFR (MDRD) 110 (>89) 09/28/23 04:58 Glucose 90 mg/dL (74-104) 09/28/23 04:58 Calcium 8.8 mg/dL (8.5-10.3) 09/28/23 04:58 Iron 22 ug/dL (50-212) L 09/26/23 16:42 TIBC 463 ug/dL (250-450) H 09/26/23 16:42 % Saturation 5 % (20-50) L 09/26/23 16:42 Transferrin 331 mg/dL (203-362) 09/26/23 16:42 Ferritin 13.3 ng/mL (23.9-336.2) L 09/27/23 04:25 Total Bilirubin 0.9 mg/dL (0.2-1.0) 09/25/23 17:47 AST 21 IU/L (10-42) 09/25/23 17:47 ALT 12 IU/L (10-60) 09/25/23 17:47 Alkaline Phosphatase 27 IU/L (42-121) L 09/25/23 17:47 Troponin I High Sens 10.3 ng/L (2.3-19.7) 09/25/23 04:50 Total Protein 5.6 g/dL (6.4-8.9) L 09/25/23 17:47 Albumin 3.5 g/dL (3.2-5.5) 09/25/23 17:47 Globulin 2.1 g/dL (2.1-4.2) 09/25/23 17:47 Albumin/Globulin Ratio 1.7 (1.0-2.2) 09/25/23 17:47 Lipase 22 U/L (11-82) 09/25/23 04:53 Total PSA 0.868 ng/mL (0.000-2.000) 09/25/23 17:47 TSH 8.31 uIU/mL (0.34-5.60) H 09/25/23 04:50 Free T4 Direct 0.76 ng/dL (0.58-1.64) 09/25/23 04:50 Urine Color YELLOW 09/25/23 13:10 Urine Clarity CLEAR (CLEAR) 09/25/23 13:10 Urine pH 6.0 PH (5.0-7.5) 09/25/23 13:10 Ur Specific [place] 1.010 (1.002-1.030) 09/25/23 13:10 Urine Protein NEGATIVE mg/dL (NEGATIVE) 09/25/23 13:10 Urine Glucose (UA) NEGATIVE mg/dL (NEGATIVE) 09/25/23 13:10 Urine Ketones 15 mg/dL (NEGATIVE) H 09/25/23 13:10 Urine Occult Blood NEGATIVE (NEGATIVE) 09/25/23 13:10 Urine Nitrite NEGATIVE (NEGATIVE) 09/25/23 13:10 Urine Bilirubin NEGATIVE (NEGATIVE) 09/25/23 13:10 Urine Urobilinogen 0.2 (NORMAL) E.U./dL (NORMAL) 09/25/23 13:10 Ur Leukocyte Esterase NEGATIVE (NEGATIVE) 09/25/23 13:10 Ur Microscopic Review NOT INDICATED 09/25/23 13:10 Urine Culture Comments NOT INDICATED 09/25/23 13:10 Acetaminophen 0.2 ug/mL 09/26/23 16:42 Blood Type O POSITIVE 09/25/23 05:46 Blood Type Recheck O POSITIVE 09/25/23 04:53 Antibody Screen NEGATIVE 09/25/23 05:46 Crossmatch IS Only See Detail 09/25/23 05:46 Sepsis Event Note (H) - Evaluation Current Stage of Sepsis: Ruled out
[2023-09-28] MEDS: ATORVASTATIN 10 MG TABLET PO SCH (21:33)
[2023-09-28 23:46] VITALS: O2SAT 100
[2023-09-29 05:48] LABS: BASOPHILS % (AUTO) 0.3 %; EOSINOPHILS # (AUTO) 0.1 10^3/uL (0.0-0.7); EOSINOPHILS % (AUTO) 1.6 %; HCT - HEMATOCRIT 29.4 % (42.0-52.0); HGB - HEMOGLOBIN 9.9 g/dL (14.0-18.0); LYMPHOCYTES # (AUTO) 1.1 10^3/uL (1.5-3.5); LYMPHOCYTES % (AUTO) 17.1 %; MEAN CORPUSCULAR HEMOGLOBIN 28.6 pg (27.0-31.0); MEAN CORPUSCULAR HGB CONC 33.7 g/dL (32.0-36.0); MEAN PLATELET VOLUME 8.3 fL (7.4-11.4); MONOCYTES # (AUTO) 0.6 10^3/uL (0.0-1.0); MONOCYTES % (AUTO) 9.8 %; NEUTROPHILS # (AUTO) 4.6 10^3/uL (1.5-6.6); PLT - PLATELET COUNT 516 10^3/uL (130-450); RED BLOOD COUNT 3.46 10^6/uL (4.70-6.10); RED CELL DISTRIBUTION WIDTH 15.3 % (12.0-15.0); WHITE BLOOD COUNT 6.4 x10^3/uL (4.8-10.8)
[2023-09-29] MEDS: LEVOTHYROXINE 100 MCG TABLET PO SCH (06:04)
[2023-09-29] MEDS: PANTOPRAZOLE 40 MG TABLET PO SCH (06:04)
[2023-09-29 06:09] LABS: CALCIUM 8.7 mg/dL (8.5-10.3); CREATININE 0.7 mg/dL (0.6-1.3); POTASSIUM 3.5 mmol/L (3.5-4.5)
[2023-09-29] MEDS ORDERED: FERROUS GLUCONATE 324 MG TABLET PO SCH (08:00)
[2023-09-29 08:05] VITALS: BP 148/90
[2023-09-29] MEDS: LOSARTAN 50 MG TABLET PO SCH (08:14)
[2023-09-29] MEDS: SODIUM CHLORIDE FLUSH 0.9% 10 ML SYRINGE IVP SCH (08:15)
--- NOTE | 2023-09-29 13:29 | DISCHARGE SUMMARY ---
Discharge Summary Admit Date: 09/25/23 Discharge Date: 09/29/23 Discharging Provider: Dr Araceli Oquendo Primary Care Provider: Dr Bri Barrios Condition at Discharge: Serious - HPI History of Present Illness: A 73 year old male with history of hypertension, hyperlipidemia, hypothyroidism, celiac disease, peptic ulcer disease, chronic anemia, alcohol drinker small amount each day, last drink was the day before presentation. He was was brought in to the ED by EMS after his found him on the porch passed out at night. Per patient, he went out to the por at night around 3 AM after drinking some water, try to get some fresh air, he felt lightheaded, and very weak, he helped himself slowly down to the floor, denies lost consciousness and fall. His found him and called EMS. Patient reports 3 days of dark tarry stool, he was seen in an outpatient clinic the day before presentation, he was told that his stool was positive with blood. He also has complaints of urinary urgency, however cannot produce any urine. Per patient's , the patient took ibuprofen a few days ago along with Motrin. Patient reports about 20 pounds of weight loss in the past 2 weeks. Patient reports nausea vomiting, and diarrhea. Denies abdominal pain. Denies dysuria, denies previous prostate condition In the ED patient vitals were within normal limits. Labs significant with hemoglobin 6.0 sodium 128, potassium 3.1, glucose 157. Patient was given Protonix IV once, 2 units of PRBC was ordered in the ED. Surgery Dr. Noel was consulted, recommend n.p.o. after midnight plans for EGD tomorrow a.m. Per social and human services assistant, patient reported he had a suicidal attempt by taking 10-15 oxycodone last night then went to the por, wanted to pass peacefully. 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 A suicide watch will be ordered. - HOSPITAL COURSE Hospital Course: (1) Anemia After 2 U PRBC given, hemoglobin improved to 9.6 appropriately. EGD done 09/26 showed no active bleeding but a diverticulum of stomach was seen, which may have been an ulcer. On 09/27 colonoscopy was done and no active source of bleeding was seen. Iron panel showed low Iron. He was treated with Iron replacement and PPI BID. (2) AMS He had AMS, prompting this admission and we learned that he intentionally ingested 10 to 15 tablets of oxycodone for a suicidal attempt. His mentation improved by the next day. Discussed with poison control at [phone], who recommended to check acetaminophen level, and do drug screen. His vitals remained within normal limits, and mental status remained improved. (3) Suicide attempt While here, he was in his bathroom, broke his glasses and used a piece of shard of glass to cut his neck on both sides. The night Telemedicine doctor was informed. A telepsych consult was ordered. Telepsych consult was done and the patient was felt to have depression and suicidal ideation and recommendation was to discharge him to In psych and continue 1:1 suicide watch. He was transferred to [place] by ambulance. (3) Hypothyroidism TSH was 8, and his Free T4 was low-normal level. Thus we increased his daily Synthroid dose from 88 to 100 mcg. Pt will need a follow-up TSH and T4 checked as outpatient in several weeks (4) Cachexia His BMI is 17 and he has muscle wasting. He was seen by Dietary. (5) Celiac disease Gluten-free diet ordered (7) Hyponatremia Resolved on iv NS hydration (8) Hypokalemia Resolved with replacement - ALLERGIES Allergies/Adverse Reactions: Allergies Allergy/AdvReac Type Severity Reaction Status Date / Time gluten Allergy Cramps Verified 09/28/23 09:24 Penicillins Allergy Hives Verified 07/05/18 18:47 tetanus and diphtheria Allergy Hives Verified 07/05/18 18:47 toxoids - MEDICATIONS Home Medications: Ambulatory Orders Medication Instructions Recorded Confirmed Acetaminophen [Tylenol] 1,000 mg PO Q6H PRN 09/25/23 09/25/23 Atorvastatin [Lipitor] 20 mg PO QPM 09/25/23 09/25/23 Ibuprofen [Advil] 400 mg PO QID PRN 09/25/23 09/25/23 Levothyroxine [Synthroid] 88 mcg PO QDAC 09/25/23 09/25/23 Losartan Potassium 25 mg PO DAILY 09/25/23 09/25/23 Ondansetron HCl 4 mg PO BID PRN 10/29/23 10/29/23 - PHYSICAL EXAM AT DISCHARGE General Appearance: positive: No acute distress, Alert, Other (Cachectic male, w/ long while hair in a ponytail. Long white cohen.) Eyes Bilateral: positive: Normal inspection, EOMI ENT: positive: No signs of dehydration, Other (Cachectic with sunken eyes and cheeks.) Neck: positive: No JVD, Other (Muscle wasting) Respiratory: positive: No respiratory distress, Breath sounds nml Cardiovascular: positive: Regular rate & rhythm, No murmur Abdomen: positive: Non-tender, No distention Skin: positive: Warm, Dry, Pallor Extremities: positive: Non-tender, No pedal edema Neurologic/Psychiatric: positive: Oriented x3, Motor nml - LABS Result Diagrams: 09/29/23 05:20 09/29/23 05:20 - DIAGNOSTIC IMAGING Diagnostic Imaging Results: Final report reviewed - SEPSIS Current Stage of Sepsis: Ruled out - FOLLOW UP Follow Up: This will be determined after his Inpatient psychiatry stay. - TIME SPENT Time Spent in Discharge (Minutes): 40
== END 2023-09-29 13:10 | DRG 812 ==
LOC: EDUNIT# → EDBD → ED 04:43 → MS2 08:16
PROVIDERS: ADMIT Internal Medicine; ATTEND Internal Medicine
PROC: 30233N1 Transfusion of Nonautologous Red Blood Cells into Peripheral Vein, Percutaneous Approach (ICD-10-PCS; 2023-09-25)
PROC: 0DJD8ZZ Inspection of Lower Intestinal Tract, Via Natural or Artificial Opening Endoscopic (ICD-10-PCS; 2023-09-26)
PROC: 0DJ08ZZ Inspection of Upper Intestinal Tract, Via Natural or Artificial Opening Endoscopic (ICD-10-PCS; principal; 2023-09-26 12:00)
DX: D64.9 Anemia, unspecified (principal); R45.851 Suicidal ideations; R64 Cachexia; R07.9 Chest pain, unspecified; Z68.1 Body mass index [BMI] 19.9 or less, adult; Z11.52 Encounter for screening for COVID-19; E87.1 Hypo-osmolality and hyponatremia; K92.1 Melena; K31.4 Gastric diverticulum; T40.2X2A Poisoning by other opioids, intentional self-harm, initial encounter; R41.82 Altered mental status, unspecified; S11.91XA Laceration without foreign body of unspecified part of neck, initial encounter; X78.0XXA Intentional self-harm by sharp glass, initial encounter; Y92.231 Patient bathroom in hospital as the place of occurrence of the external cause; E03.9 Hypothyroidism, unspecified; K90.0 Celiac disease; I10 Essential (primary) hypertension; E78.00 Pure hypercholesterolemia, unspecified; R55 Syncope and collapse; E87.6 Hypokalemia; K57.10 Diverticulosis of small intestine without perforation or abscess without bleeding; F41.9 Anxiety disorder, unspecified; K57.30 Diverticulosis of large intestine without perforation or abscess without bleeding; Z79.890 Hormone replacement therapy; Z79.899 Other long term (current) drug therapy
CPT/HCPCS: 36415; 70450; 71045; 80048; 80053; 80307; 81003; 82272; 82728; 83540; 83690; 84132; 84153; 84439; 84443; 84466; 84484; 85025; 85610; 86850; 86900; 86901; 86920; 87635; 93005; 96374; 96375; 99285; A9270; J2372; J7120; P9016; Q0162; 80306; 81001; 87086

== ENCOUNTER 2024-03-05 14:08 | Outpatient (CLI) | payer MEDICARE ==
[2024-03-05 14:52] LABS: ALBUMIN 4.2 g/dL (3.2-5.5); BILIRUBIN,DIRECT 0.14 mg/dL (0.03-0.18); BILIRUBIN,TOTAL 0.5 mg/dL (0.2-1.0); TOTAL PROTEIN 7.4 g/dL (6.4-8.9)
== END 2024-03-05 14:09 | disposition home or self-care (01) ==
LOC: LAB 14:08
DX: F33.2 Major depressive disorder, recurrent severe without psychotic features (principal)
CPT/HCPCS: 36415; 80076